=== PATIENT | male | born 1965 | race Caucasian/White ===

== ENCOUNTER 2019-12-16 18:28 | Inpatient (IN) | payer MEDICARE, OTHER ==
[~2019-12-16] VITALS: Ht 182.9 cm; Wt 103.4 kg
--- OUTSIDE RECORDS SUMMARY | 2019-12-16 18:32 | XMS ---
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 Tony has no Care Guidelines for this patient. Deniz VISIT COUNT (12 MO.) 1 DALJIT Scott TOTAL 1 NOTE: Visits indicate total known visits. ED/UCC VISIT TRACKING (12 MO.) 12/16/2019 18:29 DALJIT [facility] [place] TYPE: Emergency COMPLAINT: - FEVER/SOB/COUGH INPATIENT VISIT TRACKING (12 MO.) No inpatient visits to display in this time frame [email or web address]
[2019-12-16] MEDS ORDERED: OLANZAPINE20 MG PO (18:44)
[2019-12-16] MEDS ORDERED: OLANZAPINE10 MG PO (18:44)
[2019-12-16] MEDS ORDERED: DULOXETINE HCL30 MG PO (18:44)
[2019-12-16] MEDS ORDERED: LEVOFLOXACIN750 MG PO (18:44)
[2019-12-16] MEDS ORDERED: GABAPENTIN800 MG PO (18:45)
[2019-12-16] MEDS ORDERED: TIZANIDINE HCL4 M1 PO (18:45)
[2019-12-16] MEDS ORDERED: LEVETIRACETAM500 MG PO (18:45)
--- NOTE | 2019-12-16 22:00 | NUR ---
PATIENT ARRIVED VIA STRETCHER. TRANSFERED SELF TO BED. CONTINUES ON 3L NC, TOLERATING WELL WITH O2 SAT 95% AND RR 26. PATIENT CONTINUES TO HAVE FEVER. HR ELEVATED TO LOW 100'S. PATIENT INCONTINENT OF LARGE AMOUNT OF URINE. ORIENTED TO ALL, HOWEVER STATES "I'M OUT OF IN MAN" AND OCCATIONALLY RAMBLES UNDER HIS BREATH. SKIN GROSSLY INTACT. PATIENT REPORTS BEING HUNGRY, LUNCH BOX AND SODA PROVIDED.
--- NOTE | 2019-12-17 | NUR ---
PATIENT APPEARED TO BE SLEEPING SOUNDLY. TOLERATING 3L NC, O2 SAT 93% WITH RR 24. LUNG SOUNDS ARE COARSE ON LEFT SIDE, CLEAR ON RIGHT. NONPRODUCTIVE COUGH AT THIS TIME. PATIENT AWARE OF NEED FOR SPUTUM CULTURE. PATIENT WOKE EASILY TO VOICE. DENIES NEED TO VOID. IV FLUIDS AND MAG PER ORDER, SITE WNL. ALLOWED PATIENT TO REST. CALL LIGHT IN REACH.
--- NOTE | 2019-12-17 01:45 | NUR ---
PATIENT APPEARS DIAPHROETIC AND FEELS WARM TO THE TOUCH. REPORTS FEELING HOT WELL. ROOM TEMP REDUCED. PATIENT'S AXILLARY TEMP 98.4 F. PATIENT'S UPPER BODY WIPED WITH COOL WET WASH CLOTH AND DRIED. LINENS CHANGED. PATIENT DENIES NEED TO VOID. ATTENDS ARE DRY. TOLERATING 3L NC AT 95% O2 SAT. TITRATED TO 1L NC. PATIENT DENIES ANY NEEDS. CALL LIGHT IN REACH.
--- NOTE | 2019-12-17 03:11 | NUR ---
PATIENT APPEARS TO BE SLEEPING SOUNDLY. TOLERATING 1L NC WITH O2 SAT 92% AND RR 25. CALL LIGHT IN REACH.
--- NOTE | 2019-12-17 04:30 | NUR ---
PATIENT SLEEPING SOUNDLY. WAKES EASILY. ANSWERS QUESTIONS APPROPRIATELY. TOLERATING 1L NC. O2 SAT 93% WITH RR 22. BREATHING APPEARS EVEN AND NON LABORED. LUNG SOUNDS ARE COARSE THROUGHOUT. IV FLUIDS PER ORDER, SITE WNL. PATIENT DENIES NEED TO VOID, ATTENDS IS DRY. ORAL TEMP 98.7 F. PATIENT DENIED ANY NEEDS. CALL LIGHT IN REACH.
--- NOTE | 2019-12-17 06:39 | NUR ---
PATIENT DENIED NEED TO VOID. ENCOURAGED PATIENT TO GET UP TO BSC TO ATTEMPT TO VOID. PATIENT FOUND TO HAVE LARGE INCONTINENCE IN THE BED. PARTIAL BED BATH DONE. NEW ATTENDS PROVIDED. PATIENT RETURNED TO BED. REPORTS FEELING MORE STRENGTH THIS MORNING. IS ORIENTED X4. VS STABLE. TOLERATED TRANSFER WITHOUT O2. TITRATED TO ROOM AIR AT THIS TIME. O2 SAT 94% WITH RR 18.
--- NOTE | 2019-12-17 08:00 | NUR ---
ASSESSMENT DONE. TALKED WITH PATIENT ABOUT POC FOR DAY. INDICATES UNDERSTANDING. IVF PATIENT. PATIENT HAS LOOSE COUGH. DENIES INCREASED SHORTNESS OF BREATH. IS TALKATIVE. REMAINS ON ROOM AIR WITH O2 SAT MID 90'S.
--- NOTE | 2019-12-17 08:20 | NUR ---
TO XRAY DEPARTMENT VIA W/C FOR PA/LAT CHEST XRAY. TECH AND RN WITH PATIENT, SIMPLE MASK APPLIED TO PATIENT FOR TRANSFER.
--- NOTE | 2019-12-17 08:35 | NUR ---
RETURN TO ROOM 129. TOLERATE XRAY WELL. INC OF URINE, ATTENDS CHANGED. THEN TO CHAIR FOR BREAKFAST.
--- NOTE | 2019-12-17 09:00 | NUR ---
TOOK BREAKFAST WELL. ROUTINE MEDS GIVEN. IS COOPERATIVE. STATES HE FEELS MUCH BETTER TODAY.
[2019-12-17] MEDS ORDERED: MELATIN3 MG PO (10:16)
--- NOTE | 2019-12-17 10:26 | NUR ---
DR. NGUYEN HERE TO SEE PATIENT, ORDERS TO MED SURG RECIEVED.
--- NOTE | 2019-12-17 10:50 | NUR ---
TO BR TO EXPELL XX LARGE FORMED BROWN STOOL, BACK TO CHAIR.
--- NOTE | 2019-12-17 11:00 | NUR ---
REPORT TO MED-SURG. PATIENT REMAINS IN CHAIR.
--- NOTE | 2019-12-17 11:20 | NUR ---
TO MED-SURG VIA CHAIR.
--- NOTE | 2019-12-17 14:18 | NUR ---
PT IS STABLE ON HIS FEET, ABLE TO AMBULATE TO THE BATHROOM ALONE AT THIS TIME. REMINDED PT TO CALL IF HE FEELS LIGHTHEADED, DIZZY, SHORT OF BREATH, OR HAS ANY ISSUES AT ALL. PT AGREED.
--- NOTE | 2019-12-17 21:00 | NUR ---
Up in chair, watching tv. no c/o pain. was incontinent of urine earlier, attends inplace, alert and oriented, cooperative with assessment. On room air. IVF infusing, call light and fluids at bedside
--- NOTE | 2019-12-17 21:01 | EKG ---
[facility] [address] [facility] [address] [facility] [place], [place] [address] Signed Sinus tachycardia Possible Left atrial enlargement Incomplete right bundle branch block Septal infarct , age undetermined Abnormal ECG No previous ECGs available Confirmed by ARCENIO NGUYEN MD ([id number]) on 12/17/2019 9:01:23 PM Electronically Signed By: ARCENIO NGUYEN MD 12/17/192100 PATIENT NAME: BRITTANY MANUEL Electrocardiogram DATE OF : 65 PHYSICIAN: ARCENIO NGUYEN MD REPORT #: [id number] REPORT IS CONFIDENTIAL AND NOT TO BE RELEASED WITHOUT AUTHORIZATION
--- NOTE | 2019-12-17 21:05 | NUR ---
SCOURING PADS SUPERVISOR ROUNDING NOTE. PT SITTING UP CHAIR. PRIMARY RN IN ROOM ADMINISTERING MEDS. PT ASKS QUESTIONS ABOUT ROLES OF STAFF IN THE HOSPITAL. DENIES FURTHER NEEDS. WHITE BOARD UPDATED. CALL LIGHT IN REACH.
--- NOTE | 2019-12-18 00:02 | NUR ---
resting, eyes closed, no resp distress, on room air in bed, SL patent,
--- NOTE | 2019-12-18 02:00 | NUR ---
Pt resting, lying on his stomach, on room air, resp even, ulabored. call light at bedside, pt is SL now. tolerating diet well
--- NOTE | 2019-12-18 04:32 | NUR ---
aWAKE, INCONTINENT OF URINE, SKIN CARE AND CLEAN ATTENDS IN PLACE. ON ROOM AIR, AWARE OF NEED FOR SPUTUM. UP IN CHAIR AT THIS TIME. NO C/O PAIN OR SOB
--- NOTE | 2019-12-18 05:24 | NUR ---
PT HAS SLEPT MOST OF THIS SHIFT, SPUTUM SAMPLE OBTAINED AND SENT TO LAB. ON ROOM AIR, LUNGS DIM AT BASES BILAT. AND USES FWW, WEAK LE, INCONTINENT OF URINE, USES URINAL TOO. SKIN CARE AND FRESH ATTENDS IN PLACE. EDEMA AT ANKLES. PLESANT AND COOPERATIVE, SLX2 PATENT. USING CALL LIGHT APPROPRIATELY
--- NOTE | 2019-12-18 07:59 | NUR ---
REPORT RECEIVED. PT SITTING UP IN CHAIR. DENIES ANY PAIN OR NEEDS AT THIS TIME. SALINE LOCKED. CALL LIGHT IN REACH
--- NOTE | 2019-12-18 09:42 | NUR ---
PT ASSISTED OUT OF THE SHOWER TO RECLINER WARM BLANKET PROVIDED, BATHROOM CLEANED UP, FLOOR WIPED DRY. PT REQUEST ICE TEA, THIS IS PROVIDED. NO OTHER REQUESTS AT THIS TIME.
--- NOTE | 2019-12-18 11:14 | NUR ---
PATIENT TOOK A SHOWER THIS MORNING. NOW IS SITTING UP IN HIS CHAIR WATCHING TV. ALSO BROUGHT HIM SOME ICE TEA. LINENS CHANGED.
--- NOTE | 2019-12-18 12:23 | NUR ---
NIKI FROM LAB CALLED FOR CRITICAL LAB VALUE OF POSITIVE BACILLI. DR NGUYEN NOTIFIED.
--- NOTE | 2019-12-18 14:48 | NUR ---
AMBULATED 2 LAPS IN HALLS. TOLERATED WELL.
--- NOTE | 2019-12-18 18:39 | NUR ---
AMBULATED 1 LAP WITH PT. TOELRATED WELL.
--- NOTE | 2019-12-18 20:56 | NUR ---
Up in chair, no c/o pain, no c/o sob. on room air. lungs with faint exp wheezing bilat. edema to ankles 2+, was incontinent of urine in attends and over urinal. Taking QS fluids, no emesis. Medicated per c/o insomnia with 3mg of Melatonin and muscle relaxing meds. Coop with assessment. IVF infusing w/o problems
--- NOTE | 2019-12-18 21:45 | NUR ---
ISSUER ROUNDING NOTE. PT CALLS BECAUSE HE CANNOT REACH URINAL WHILE IVF INFUSING. URINAL MOVED WITHIN PT'S REACH. PT HAS NUMEROUS QUESTIONS ABOUT CURRENT ILLNESS, AND DISCHARGE. QUESTIONS ANSWERED AND PT DENIES FURTHER QUESTIONS. CALL LIGHT IN REACH. WHITE BOARD UDPATED.
--- NOTE | 2019-12-19 00:10 | NUR ---
RESTING, EYES CLOSED, NO C/O PAIN OR RESP DISTRESS, LAYING ON STOMACH, CALL LIGHT AND FLUIDS AT BEDSIDE
--- NOTE | 2019-12-19 01:55 | NUR ---
Rresting, eyes closed, no distress, resp even, unlabored. call light and fluids at bedside
--- NOTE | 2019-12-19 03:26 | NUR ---
UP TO CHAIR, USED URINAL, VOIDING LARGE AMOUNTS OF DARK YELLOW URINE. NO C/O PAIN. NO SOB. FAINT CRACKLES AT BASES AUSCULTATED. TOLERATING DIET WELL.
--- NOTE | 2019-12-19 04:56 | NUR ---
c/o h/a and back 02/28 pain, medicated with tylenol 500mg po, up in chair
--- NOTE | 2019-12-19 05:01 | NUR ---
pt c/o back pain, medicated with Zanaflex , pt up in chair watching tv
--- NOTE | 2019-12-19 05:50 | NUR ---
Pt was medicated with Zanaflex x2 per c/o back muscle spasms with good relief and with Melatonin per insomnia, effective. Pt has been drinking large amounts of fluids, and voiding large amounts of yellow urine. Was incontient of urine x2. Up to chair several times, w minimum of assist. currently in chair watching tv. no emesis, on room air, lungs with faint crackles and dim at bases. Pt states he is going home, waiting on BC and sputum results
--- NOTE | 2019-12-19 07:40 | NUR ---
RECEIVED REPROT FROM [facility]. PT IS UP IN THE RECLINER, ALERT, PLEASANT. ON RA, DENIED PAIN, NO NEEDS AT THE MOMENT. WILL BE BACK TO ASSESS.
--- NOTE | 2019-12-19 08:24 | NUR ---
PT ALERT, ORIENTED, COPPERATIVE, PLEASANT. TOOK HIS SCHEDULED MEDS WHOLE WITH WATER. VSS WNL. FLUSHED IV SITE WITH 10 ML OF NS WITHOUT ANY DIFFICULTIES. EATS BREAKFAST. WILL BE BACK TO ASSESS.
--- NOTE | 2019-12-19 11:24 | NUR ---
PT UP IN HIS RECLINER, WATCHING TV. aLERT, COOPERATIVE, POLITE. REPORTEED PAIN 02/28. SEE MAR FOR MEDICATION ADMINISTRATION. NO OTHER HEEDS AT THE MOMENT. WILL BE BACK TO REASSESS FOR PAIN.
--- NOTE | 2019-12-19 12:39 | NUR ---
PT WAS SITTING IN CHAIR, EATING LUNCH AND WATCHING TV. PT WELCOMED ME, AND SEEMED TO BE ENJOYING HIS LUNCH. PT PLANS ON DC TODAY TO DESIRE FOR HEALING AND MENTIONED HE IS VERY COMFORTABLE THERE. PT THANKFUL FOR CARE, EXTENDED A BLESSING AND LEFT A G.POST
--- NOTE | 2019-12-19 13:20 | NUR ---
PT GIVEN MORE ICE TEA AND ICE. WALKED IN MOON X2 LOOPS. TOLERATED WELL WITH FWW.
[2019-12-19] MEDS ORDERED: DOXYCYCLINE HY100 MG PO (14:02)
[2019-12-19] MEDS ORDERED: CEFPODOXIME PR200 MG PO (14:03)
--- NOTE | 2019-12-19 14:03 | NUR ---
IN ROOM WITH PT AND DR NGUYEN. PT READY TO GO HOME AND FEELS STRONGER THAN UPON ARRIVAL. STATES COUGH IS ALL BUT GONE.
--- NOTE | 2019-12-19 14:25 | NUR ---
pt dressed up in his recliner, ready to be discharged. in a good mood and spirit, cooperative.
== END 2019-12-19 15:53 | disposition home or self-care (01) | DRG 871 ==
LOC: ED 18:28 → CCU 21:08 → MS 21:08
PROVIDERS: ADMIT Internal Medicine
DX: A40.9 Streptococcal sepsis, unspecified (principal); J15.4 Pneumonia due to other streptococci; I47.1 Supraventricular tachycardia; E83.42 Hypomagnesemia; F20.9 Schizophrenia, unspecified; F41.8 Other specified anxiety disorders; F17.210 Nicotine dependence, cigarettes, uncomplicated; D72.829 Elevated white blood cell count, unspecified; T38.0X5A Adverse effect of glucocorticoids and synthetic analogues, initial encounter; Y92.239 Unspecified place in hospital as the place of occurrence of the external cause; Z88.1 Allergy status to other antibiotic agents; Z88.8 Allergy status to other drugs, medicaments and biological substances
CPT/HCPCS: 36415; 71045; 71046; 80053; 83605; 83735; 83880; 84484; 85025; 87502; 93005; 93010; 94640; 94667; 96374; 96375; 99285-25; 99406; J0696; J1100; J1956; J3475; J7030; J7121

== ENCOUNTER 2020-09-27 15:05 | Inpatient (IN) | payer MEDICARE, OTHER ==
[~2020-09-27] VITALS: Ht 182.9 cm; Wt 115.0 kg
[~2020-09-27 15:05] MED LIST: CEFPODOXIME PR200 MG PO; CYMBALTA60 MG PO; DOXYCYCLINE HY100 MG PO; GABAPENTIN800 MG PO; KEPPRA750 MG PO; LEVOFLOXACIN750 MG PO; MELATIN3 MG PO; OLANZAPINE10 MG PO; OLANZAPINE20 MG PO; TIZANIDINE HCL2 MG PO
--- OUTSIDE RECORDS SUMMARY | 2020-09-27 15:08 | XMS ---
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 EYahir VISIT COUNT (12 MO.) 1 Kelvin Scott TOTAL 3 NOTE: Visits indicate total known visits. ED/UCC VISIT TRACKING (12 MO.) 09/27/2020 15:05 DALJIT [facility] [place] TYPE: Emergency COMPLAINT: - POSSIBLE OD 12/16/2019 18:[address] [facility] [place] TYPE: Emergency COMPLAINT: - FEVER/SOB/COUGH 10/30/2019 16:09 Kelvin [facility] [place] TYPE: Emergency DIAGNOSES: - Weakness - Alcohol dependence, uncomplicated - Schizophrenia, unspecified - Mental Health Evaluation - Unspecified urinary incontinence - Acute cystitis with hematuria INPATIENT VISIT TRACKING (12 MO.) 12/16/2019 21:08 DALJIT [facility] [place] TYPE: Medical Surgical COMPLAINT: - SEPSIS, PNEUMONIA DIAGNOSES: - Streptococcal sepsis, unspecified - Supraventricular tachycardia - Elevated white blood cell count, unspecified - Allergy status to other antibiotic agents - Pneumonia due to other streptococci - Unspecified place in hospital as the place of occurrence of the external cause - Adverse effect of glucocorticoids and synthetic analogues, initial encounter - Other specified anxiety disorders - Elevated white blood cell count, unspecified - Allergy status to other drugs, medicaments and biological substances - Supraventricular tachycardia - Schizophrenia, unspecified - Schizophrenia, unspecified - Allergy status to other antibiotic agents - Nicotine dependence, cigarettes, uncomplicated - Pneumonia due to other streptococci - Nicotine dependence, cigarettes, uncomplicated - Streptococcal sepsis, unspecified - Sepsis, unspecified organism - Hypomagnesemia - Allergy status to other drugs, medicaments and biological substances - Unspecified place in hospital as the place of occurrence of the external cause - Other specified anxiety disorders - Adverse effect of glucocorticoids and synthetic analogues, initial encounter - Hypomagnesemia [email or web address]
[2020-09-27] MEDS ORDERED: 8 HOUR650 MG PO (16:27)
[2020-09-27] MEDS ORDERED: MIRALAX17 GM PO (16:28)
[2020-09-27] MEDS ORDERED: OXYBUTYNIN CHLOR5 MG PO (16:28)
[2020-09-27] MEDS ORDERED: LOPERAMIDE2 M1 PO (16:28)
[2020-09-27] MEDS ORDERED: VITAMIN D21250 MCG PO (16:29)
--- NOTE | 2020-09-27 17:38 | EKG ---
[facility] [address] [facility] [place] [address] Signed Sinus tachycardia Minimal voltage criteria for LVH, may be normal variant Nonspecific ST abnormality Prolonged QT Abnormal ECG When compared with ECG of 16-DEC-2019 18:42, Incomplete right bundle branch block is no longer present ST now depressed in Anterior leads Confirmed by ARCENIO NGUYEN MD ([id number]) on 09/27/2020 5:38:20 PM Electronically Signed By: ARCENIO NGUYEN MD 09/27/20 1738 PATIENT NAME: BRITTANY MANUEL Electrocardiogram DATE OF : 65 PHYSICIAN: ARCENIO NGUYEN MD REPORT #: [id number] REPORT IS CONFIDENTIAL AND NOT TO BE RELEASED WITHOUT AUTHORIZATION
--- NOTE | 2020-09-28 22:23 | EKG ---
[facility] [address] [facility] [place] [address] Signed Normal sinus rhythm Nonspecific intraventricular block Abnormal ECG When compared with ECG of 27-SEP-2020 15:14, ST no longer depressed in Anterior leads Confirmed by ARCENIO NGUYEN MD ([id number]) on 09/28/2020 10:23:13 PM Electronically Signed By: ARCENIO NGUYEN MD 09/28/20 2223 PATIENT NAME: BRITTANY MANUEL Electrocardiogram DATE OF : 65 PHYSICIAN: ARCENIO NGUYEN MD REPORT #: [id number] REPORT IS CONFIDENTIAL AND NOT TO BE RELEASED WITHOUT AUTHORIZATION
[2020-09-30] MEDS ORDERED: DOXYCYCLINE HY100 MG PO (12:08)
[2020-09-30] MEDS ORDERED: CEFPODOXIME PR200 MG PO (12:09)
[2020-09-30] MEDS ORDERED: PROBIOTIC1 EAC5 PO (12:10)
== END 2020-09-30 14:00 | disposition home or self-care (01) | DRG 871 ==
LOC: ED 15:05 → CCU 20:19 → MS 09-29 16:17
PROVIDERS: ADMIT Internal Medicine; ATTEND Internal Medicine
DX: A40.9 Streptococcal sepsis, unspecified (principal); J15.4 Pneumonia due to other streptococci; G92 Toxic encephalopathy; L03.115 Cellulitis of right lower limb; Z20.822 Contact with and (suspected) exposure to COVID-19; R65.20 Severe sepsis without septic shock; T65.894A Toxic effect of other specified substances, undetermined, initial encounter; K75.2 Nonspecific reactive hepatitis; A41.89 Other specified sepsis; F20.9 Schizophrenia, unspecified; G40.909 Epilepsy, unspecified, not intractable, without status epilepticus; E87.6 Hypokalemia; Z79.899 Other long term (current) drug therapy; Z88.1 Allergy status to other antibiotic agents
CPT/HCPCS: 36415; 71045; 80053; 80176; 81001; 83605; 83735; 84439; 84443; 85025; 86060; 87077; 87088; 87147; 87186; 93005; 93010; 96374; 99285-25; C9803; J0696; J2543; J3475; J3480; J7030; J7121; U0003

== ENCOUNTER 2021-01-30 06:38 | Day surgery (SDC) | payer MEDICARE, OTHER ==
[~2021-01-30 06:38] MED LIST changes: +8 HOUR650 MG PO; +LOPERAMIDE2 M1 PO; +MIRALAX17 GM PO; +OXYBUTYNIN CHLOR5 MG PO; +PROBIOTIC1 EAC5 PO; +SPIRONOLACTONE25 MG PO; +VITAMIN D21250 MCG PO
--- NOTE | 2021-01-30 07:07 | NUR ---
RATES NECK PAIN 4/10
--- NOTE | 2021-01-30 07:09 | NUR ---
USES WC OR WALKER DENIES ANY RECENT FALLS
--- NOTE | 2021-01-30 08:38 | NUR ---
01/30/21 0838 BridgetAbbie M 0813- PT TO PACU IN LL POSITION. RESPONDS TO VERBAL STIMULI. BREATHING EASY AND UNLABORED. SPO2 >95% ON 2 L O2 VIA NC. 0816- PT VOIDING IN THE BED. RESPONDS TO VERBAL AND TACTILE STIMULI. DROWSY. BRETHING EASY AND UNLABORED. O2 TITRATED DOWN TO ROOM AIR. SPO2 >95%. 0925- PT MOVES SELF IN BED. RONAD CARE PROVIDED. CLEAN LINENS PROVIDED. PT REQUIRES ASSISTANCE WITH CARE AT BASELINE PER PATIENT REPORT. DENIES PAIN NAUSEA AND DIZZINESS. SPO2 >95% ON ROOM AIR. 0834- PT SITTING UP IN BED EATING CRACKERS AND JUICE. TOLERATING PO WELL. BREATHING EASY AND UNLABORED. SPO2 >95% ON ROOM AIR. DENIES PAIN NAUSEA OR DIZZINESS. PT REQUESTING TO GO HOME NOW.
--- NOTE | 2021-01-31 12:38 | OR ---
[facility] [address] [place], [place] [address] Signed DATE OF OPERATION: 01/30/2021 SURGEON: Steffany Delgado MD PREOPERATIVE DIAGNOSES: 1. Personal history of colonic polyps in 2009. 2. Personal history of colonic polyps in 2020. 3. Extremely poor bowel prep in 2020. 4. Internal hemorrhoids. POSTOPERATIVE DIAGNOSES: 1. A 5 mm polyp at the base of cecum. 2. A 6 mm polyp at 95 cm. 3. A 4 mm polyp at the rectosigmoid junction. 4. A 4 mm polyps x3 at 8 cm/distal rectum. PROCEDURE: Colonoscopy with hot biopsy. ESTIMATED BLOOD LOSS: None. INDICATIONS: Yasir is a 55-year-old gentleman with significant schizophrenia requiring a correction here in [place], [place]. Apparently, he is not particularly compliant with his bowel prep. We did his upper and lower endoscopies a few weeks ago. His prep was extremely poor. He told me if he can have ice tea for the bowel prep, he would do fine. We decided to do ice tea with his bowel prep for two days. He also has cirrhosis of the liver with re-cannulization of the umbilical vein, although we did not see any esophageal varices. His biopsies from the stomach were fine and without any congestive changes. H pylori had been negative. We know he had polyps in his colon back in 2009. We also found a hyperplastic and an adenomatous polyp on his limited colonoscopy this year. He is known to have internal hemorrhoids. In the office, we have reviewed this in detail. Yasir assures me with the ice tea he will do well with his double bowel prep over two days. In the meantime, we did send him for some repeat blood work. Sodium is good at 143, BUN 11, and creatinine 0.69. Liver function tests are fine with an AST of 22, ALT 18, alkaline phosphatase 95, total bilirubin at 0.8. Albumin is good at 3.7. INR good at 1.1. Hemoglobin was good at 14.5 with a mean cell volume of 88. In the office, I reviewed with him the nature of a colonoscopy. He understands the nature of that test along with the risks including, but not limited to gas bloating, crampy Electronically Signed By: STEFFANY DELGADO MD 01/31/21 0613 Electronically Signed By: STEFFANY DELGADO MD 01/31/21 1633 PATIENT NAME: YASIR MANUEL OPERATIVE REPORT DATE OF : 65 REPORT #: [id number] PHYSICIAN: STEFFANY DELGADO MD PCP: ARCENIO NGUYEN MD REPORT IS CONFIDENTIAL AND NOT TO BE RELEASED WITHOUT AUTHORIZATION [facility] [address] [place], [place] [address] Signed abdominal pain, bleeding, perforation requiring surgery, and missed diagnosis. Also because of his advanced medical issues as well as his very large body habitus, we asked an anesthesia provider to help us with increased monitoring sedation with propofol. He had expressed understanding and wished to proceed. DESCRIPTION OF PROCEDURE: Yasir was taken into our endoscopy suite and placed in the left lateral decubitus position. He was given IV sedation with propofol per our nurse medical planner. He has a very large protuberant, mobile, soft abdomen. A digital rectal exam was performed and this was unremarkable, really not much in the way of any external hemorrhoids. The adult colonoscope was introduced and advanced under direct visualization of camera. Even then, he had several areas of liquid particulate stool matter, most of that was suctioned out. It took quite a bit of time to get up to the sigmoid and left colon and eventually into the cecum itself. We could easily identify the appendiceal orifice and the ileocecal valve. The scope was then slowly withdrawn. We took pictures throughout for photodocumentation. The above-mentioned polyps were removed with the help of hot biopsy forceps. There was no diverticulosis. In the rectum, we retroflexed the scope. We could not quite get a good view above the anal canal on this occasion as we did earlier in the year. After this, the gas was suctioned out. The colonoscope removed. Yasir tolerated the procedure quite well. RECOMMENDATIONS: Yasir will follow up in my office in 7 to 14 days to review his results. He might consider a short-interval colonoscopy in 3 years with a significant bowel prep, and again because of his cirrhosis, he really should consider seeing a hospice volunteer coordinator. Steffany Delgado MD ALB/MODL /[id number] cc: Steffany Delgado MD Electronically Signed By: STEFFANY DELGADO MD 01/31/21 0613 Electronically Signed By: STEFFANY DELGADO MD 01/31/21 1633 PATIENT NAME: YASIR MANUEL OPERATIVE REPORT DATE OF : 65 REPORT #: [id number] PHYSICIAN: STEFFANY DELGADO MD PCP: ARCENIO NGUYEN MD REPORT IS CONFIDENTIAL AND NOT TO BE RELEASED WITHOUT AUTHORIZATION [facility] [address] [place] [address] Signed Copies: STEFFANY DELGADO MD ~ Electronically Signed By: STEFFANY DELGADO MD 01/31/21 0613 Electronically Signed By: STEFFANY DELGADO MD 01/31/21 1633 PATIENT NAME: YASIR MANUEL OPERATIVE REPORT DATE OF : 65 REPORT #: [id number] PHYSICIAN: STEFFANY DELGADO MD PCP: ARCENIO NGUYEN MD REPORT IS CONFIDENTIAL AND NOT TO BE RELEASED WITHOUT AUTHORIZATION
--- NOTE | 2021-02-01 15:28 | PATH ---
[facility] [address] [place], [place] [address] Signed SPECIMEN(S): B COLON POLYP 90 CM SPECIMEN(S): C COLON POLYP 15 CM SPECIMEN(S): A CECAL POLYP SPECIMEN(S): D RECTAL POLYP 8 CM SPECIMEN SOURCE: A. CECAL POLYP B. COLON POLYP 90 CM C. COLON POLYP 15 CM D. RECTAL POLYP 8 CM CLINICAL HISTORY: History of rectal polyps; alcoholic cirrhosis. Postop diagnosis: Colon and rectal polyps MICROSCOPIC DESCRIPTION: Histologic sections of all submitted blocks are examined by light microscopy. These findings, together with the gross examination, support the pathologic diagnosis. FINAL PATHOLOGIC DIAGNOSIS: A. Colon, cecum, polyp, polypectomy: - Tubular adenoma. - Negative for high-grade dysplasia or malignancy. B. Colon, polyp at 90 cm, polypectomy: - Tubular adenoma. - Negative for high-grade dysplasia or malignancy. C. Colon, polyp at 15 cm, polypectomy: - Tubular adenoma. - Negative for high-grade dysplasia or malignancy. D. Rectum, polyp at 8 cm, polypectomy: - Fragments of hyperplastic polyp. - Negative for dysplasia or malignancy. NAL:cml:C2NR GROSS DESCRIPTION: Four specimens are received in four containers, labeled "Yasir Alexandra." A. The specimen, labeled "Yasir Alexandra, 1," and designated on the requisition "cecum polypectomy," is received in formalin and consists of one christianson soft tissue fragment(s) that measure 0.3 cm in greatest dimension. The specimen is entirely submitted in cassette (A1). B. The specimen, labeled "Yasir Alexandra, #2," and designated on the PATIENT NAME: YASIR ALEXANDRA PATHOLOGY DATE OF : 65 REPORT #: [id number] PHYSICIAN: NATHALIE BARNETT PCP: ARCENIO NGUYEN MD REPORT IS CONFIDENTIAL AND NOT TO BE RELEASED WITHOUT AUTHORIZATION [facility] [address] [place], [place] [address] Signed requisition "colon polypectomy at 90 cm," is received in formalin and consists of two christianson soft tissue fragments that measure 0.2 and 0.3 cm in greatest dimension. The specimen is entirely submitted in cassette (B1). C. The specimen, labeled "Yasir Alexandra, #3," and designated on the requisition "colon polypectomy at 15 cm," is received in formalin and consists of one christianson soft tissue fragment that measures 0.4 cm in greatest dimension. The specimen is entirely submitted in cassette (C1). D. The specimen, labeled "Yasir Alexandra, #4," and designated on the requisition "rectum polypectomy and 8 cm," is received in formalin and consists of two christianson soft tissue fragments that measure 0.4 and 0.4 cm in greatest dimension. The specimen is entirely submitted in cassette (D1). FB (under the direct supervision of a pathologist) The Gross Description was prepared using a voice recognition system. The report was reviewed for accuracy; however, sound-alike word errors, addition and/or deletions may occur. If there is any question about this report, please contact Client Services. PERFORMING LABORATORY: The technical component was performed by [employer], [address] [place] [id number] (Director Nursing Service: Meli Melgar MD; CLIA# [id number]). Professional interpretation was performed by [employer], [facility], [address] [address] (CLIA# [id number]). Diagnostician: Ana Ayoub MD Pathologist Electronically Signed 02/01/2021 Copies: ~ PATIENT NAME: YASIR ALEXANDRA PATHOLOGY DATE OF : 65 REPORT #: [id number] PHYSICIAN: NATHALIE BARNETT PCP: ARCENIO NGUYEN MD REPORT IS CONFIDENTIAL AND NOT TO BE RELEASED WITHOUT AUTHORIZATION
== END 2021-01-30 08:50 | disposition home or self-care (01) ==
LOC: DS 06:38 → OPS 06:38 → DS 06:45 → OPS 08:50
PROVIDERS: ATTEND Colon & Rectal Surgery
PROC: 0DBN8ZX Excision of Sigmoid Colon, Via Natural or Artificial Opening Endoscopic, Diagnostic (ICD-10-PCS; 2021-01-30)
PROC: 0DBG8ZX Excision of Left Large Intestine, Via Natural or Artificial Opening Endoscopic, Diagnostic (ICD-10-PCS; 2021-01-30)
PROC: 0DBH8ZX Excision of Cecum, Via Natural or Artificial Opening Endoscopic, Diagnostic (ICD-10-PCS; principal; 2021-01-30 06:45)
DX: K62.1 Rectal polyp (principal); D12.0 Benign neoplasm of cecum; K63.5 Polyp of colon; K70.30 Alcoholic cirrhosis of liver without ascites; F17.210 Nicotine dependence, cigarettes, uncomplicated; K76.6 Portal hypertension; K64.0 First degree hemorrhoids; Z86.19 Personal history of other infectious and parasitic diseases; Z88.1 Allergy status to other antibiotic agents; Z86.010 Personal history of colon polyps
CPT/HCPCS: 88305; J2704; J7121

== ENCOUNTER 2021-07-05 19:22 | Emergency (ER) | payer OTHER, MEDICARE ==
[~2021-07-05] VITALS: Ht 182.9 cm; Wt 121.2 kg
--- OUTSIDE RECORDS SUMMARY | 2021-07-05 19:24 | XMS ---
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 Care History Medical/Surgical 10/01/2020 [facility] -PATIENT HAS AN APT WITH DR NGUYEN TO ESTABLISH CARE ON 10/09/20. - Patient is currently established with [facility]. If patient is seen in the ED during business hours. Please contact CHWs at [facility]. Care Recommendation: If this patient has had 5 or more Emergency Department visits in the last 12 months.\T\nbsp; Patient will require education on the scope and purpose of the ED as an acute care provider not a Primary Care Provider and should not be utilized for chronic conditions.\T\nbsp; These are guidelines and the provider should exercise clinical judgment when providing care. E.D. VISIT COUNT (12 MO.) [address] [facility] TOTAL 2 NOTE: Visits indicate total known visits. ED/UCC VISIT TRACKING (12 MO.) 07/05/2021 19:22 [facility] [place] TYPE: Emergency COMPLAINT: - INTOXICATION 09/27/2020 15:05 [facility] [place] TYPE: Emergency COMPLAINT: - POSSIBLE OD INPATIENT VISIT TRACKING (12 MO.) 09/27/2020 20:19 [facility] [place] TYPE: Medical Surgical COMPLAINT: - SEPSIS DIAGNOSES: - Nonspecific reactive hepatitis - Nonspecific reactive hepatitis - Cellulitis of right lower limb - Hypokalemia - Other superintendent terminal (current) drug therapy - Schizophrenia, unspecified - Toxic effect of other specified substances, undetermined, initial encounter - Toxic encephalopathy - Allergy status to other antibiotic agents - Epilepsy, unspecified, not intractable, without status epilepticus - Other superintendent terminal (current) drug therapy - Epilepsy, unspecified, not intractable, without status epilepticus - Pneumonia due to other streptococci - Toxic effect of other specified substances, undetermined, initial encounter - Other specified sepsis - Streptococcal sepsis, unspecified - Toxic encephalopathy - Pneumonia due to other streptococci - Other specified sepsis - Hypokalemia - Allergy status to other antibiotic agents - Severe sepsis without septic shock - Schizophrenia, unspecified - Cellulitis of right lower limb - Severe sepsis without septic shock [id number]
== END 2021-07-06 06:30 | disposition home or self-care (01) ==
LOC: ED 19:22
DX: F10.129 Alcohol abuse with intoxication, unspecified (principal); S09.90XA Unspecified injury of head, initial encounter; W18.30XA Fall on same level, unspecified, initial encounter; Y92.59 Other trade areas as the place of occurrence of the external cause; K21.9 Gastro-esophageal reflux disease without esophagitis; F17.200 Nicotine dependence, unspecified, uncomplicated; Z88.2 Allergy status to sulfonamides; Z88.1 Allergy status to other antibiotic agents; Z79.899 Other long term (current) drug therapy; Y90.8 Blood alcohol level of 240 mg/100 ml or more
CPT/HCPCS: 70450; 99284-25; G0480

== ENCOUNTER 2021-07-08 19:47 | Emergency (ER) | payer MEDICARE, OTHER ==
[~2021-07-08] VITALS: Ht 182.9 cm; Wt 121.2 kg
--- OUTSIDE RECORDS SUMMARY | 2021-07-08 19:50 | XMS ---
PreManage Notification: BRITTANY MANUEL Security Business Intern Events No recent Security Events currently on file CRITERIA MET - [facility] - 2 Visits in 30 Days - PDMP CARE PROVIDERS [place] [facility] Internal Medicine Current PHONE: Unknown ARCENIO NGUYEN Internal Medicine 10/01/2020-Current PHONE: [phone] Tony has no Care Guidelines for this patient. Care History Medical/Surgical 10/01/2020 [facility] -PATIENT HAS AN APT WITH DR NGUYEN TO ESTABLISH CARE ON 10/09/20. - Patient is currently established with [facility]. If patient is seen in the ED during business hours. Please contact CHWs at [facility]. Care Recommendation: If this patient has had [...] providing care. E.D. VISIT COUNT (12 MO.) 3 [facility] TOTAL 3 NOTE: Visits indicate total known visits. 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
== END 2021-07-08 22:00 | disposition home or self-care (01) ==
LOC: ED 19:47
DX: F10.20 Alcohol dependence, uncomplicated (principal); Y90.3 Blood alcohol level of 60-79 mg/100 ml; K21.9 Gastro-esophageal reflux disease without esophagitis; F17.200 Nicotine dependence, unspecified, uncomplicated; Z88.2 Allergy status to sulfonamides; Z88.1 Allergy status to other antibiotic agents; Z79.899 Other long term (current) drug therapy
CPT/HCPCS: 80053; 81001; 82140; 83690; 85025; 99284; G0480; J7030

== ENCOUNTER 2021-07-18 11:29 | Emergency (ER) | payer MEDICARE, OTHER ==
[~2021-07-18] VITALS: Ht 182.9 cm; Wt 121.2 kg
--- OUTSIDE RECORDS SUMMARY | 2021-07-18 11:32 | XMS ---
PreManage Notification: BRITTANY MANUEL Security Lab Analyst Events No recent Security Events currently on file CRITERIA MET - [facility] - [facility] - 2 Visits in 30 Days CARE PROVIDERS [place] [facility] Internal Medicine Current PHONE: Unknown [facility] 10/01/2020-Current PHONE: [phone] Tony has no Care Guidelines for this patient. Care History Medical/Surgical 07/11/2021 [facility] - IF PATIENT IS SEEN IN ED - PLEASE CONTACT CASE MANAGEMENT - IF CASE MANAGEMENT IS NOT AVAILABLE PLEASE ASK FOR UPDATED CONTACT NUMBER. PATIENT NO LONGER RESIDES AT THE NUMBERS/CONTACTS LISTED. 10/01/2020 [facility] -PATIENT HAS AN APT WITH DR NGUYEN TO ESTABLISH CARE ON 10/09/20. - Patient is currently established with [facility]. If patient is seen in the ED during business hours. Please contact CHWs at [facility]. Care Recommendation: If this patient has had [...] providing care. E.D. VISIT COUNT (12 MO.) 4 [facility] TOTAL 4 NOTE: Visits indicate total known visits. ED/UCC VISIT TRACKING (12 MO.) 07/18/2021 11:[address] [place] TYPE: Emergency COMPLAINT: - NEK PAIN 07/08/2021 19:[address] [facility] [place] TYPE: Emergency COMPLAINT: - ABD PAIN DIAGNOSES: - Alcohol dependence, uncomplicated - Gastro-esophageal reflux disease without esophagitis - Allergy status to sulfonamides - Alcoholic cirrhosis of liver without ascites - Allergy status to other antibiotic agents - Blood alcohol level of 60-79 mg/100 ml - Nicotine dependence, unspecified, uncomplicated - Other penitentiary (current) drug therapy 07/05/2021 19:[address] [place] TYPE: Emergency COMPLAINT: - INTOXICATION DIAGNOSES: - Other penitentiary (current) drug therapy - Blood alcohol level of 240 mg/100 ml or more - Allergy status to sulfonamides - Gastro-esophageal reflux disease without esophagitis - Unspecified injury of head, initial encounter - Nicotine dependence, unspecified, uncomplicated - Other trade areas as the place of occurrence of the external cause - Allergy status to other antibiotic agents - Fall on same level, unspecified, initial encounter - Alcohol abuse with intoxication, unspecified 09/27/2020 15:05 [facility] [place] TYPE: Emergency COMPLAINT: - POSSIBLE OD INPATIENT VISIT TRACKING (12 MO.) 09/27/2020 20:19 [facility] [place] TYPE: Medical Surgical COMPLAINT: - SEPSIS DIAGNOSES: - Nonspecific reactive hepatitis - Nonspecific reactive hepatitis - Cellulitis of right lower limb - Hypokalemia - 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
== END 2021-07-18 19:54 | disposition short-term general hospital (02) ==
LOC: ED 11:29
DX: S13.4XXA Sprain of ligaments of cervical spine, initial encounter (principal); M54.12 Radiculopathy, cervical region; W17.89XA Other fall from one level to another, initial encounter; K21.9 Gastro-esophageal reflux disease without esophagitis; F17.200 Nicotine dependence, unspecified, uncomplicated; Z88.2 Allergy status to sulfonamides; Z88.1 Allergy status to other antibiotic agents; Z79.899 Other long term (current) drug therapy; Z20.822 Contact with and (suspected) exposure to COVID-19
CPT/HCPCS: 70210; 70450; 72125; 80053; 85025; 99285-25; C9803; G0480; U0003

== ENCOUNTER 2021-11-20 17:41 | Emergency (ER) | payer MEDICARE, OTHER ==
[~2021-11-20] VITALS: Ht 182.9 cm; Wt 113.5 kg
--- OUTSIDE RECORDS SUMMARY | 2021-11-20 17:44 | XMS ---
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 Care History Medical/Surgical 07/23/2021 [facility] No follow ups scheduled with PCP at this time. 07/11/2021 [facility] - IF PATIENT IS SEEN IN ED - PLEASE CONTACT CASE MANAGEMENT - IF CASE MANAGEMENT IS NOT AVAILABLE PLEASE ASK FOR UPDATED CONTACT NUMBER. PATIENT NO LONGER RESIDES AT THE NUMBERS/CONTACTS LISTED. 10/01/2020 [facility] -PATIENT HAS AN APT WITH DR NGUYEN TO ESTABLISH CARE ON 10/09/20. - Patient is currently established with [facility]. If patient is seen in the ED during business hours. Please contact CHWs at [facility]. Care Recommendation: If this patient has [...] providing care. E.D. VISIT COUNT (12 MO.) 1 [facility] Jimenez 2 [facility] 3 [facility] 1 [facility] 1 [place] 4 [facility]. TOTAL 12 NOTE: Visits indicate total known visits. ED/UCC VISIT TRACKING (12 MO.) 11/20/2021 17:42 [facility] [place] TYPE: Emergency COMPLAINT: - WOUND CHECK 10/25/2021 22:22 [facility] [place] TYPE: Emergency DIAGNOSES: - Hypokalemia - SOB; [place] - Hypoxemia - Other specified abnormal findings of blood chemistry - Other acute pancreatitis without necrosis or infection 10/25/2021 10:02 [facility] [place] TYPE: Psychiatric Emergency DIAGNOSES: - Adjustment disorder with depressed mood - [facility] 10/18/2021 10:02 [facility] [place] TYPE: Emergency COMPLAINT: - COVID-19 DIAGNOSES: 1. COVID-19 2. Encounter for other administrative examinations 3. Nicotine dependence, cigarettes, uncomplicated 08/31/2021 17:49 [facility] [place] TYPE: Emergency COMPLAINT: - SEPSIS, ACUTE RESPIRATORY FAILURE WITH HYPOXIA DIAGNOSES: 0. Acute respiratory failure with hypoxia 0. Sepsis, unspecified organism 08/08/2021 18:43 [facility] TYPE: Emergency DIAGNOSES: - HOMELESSNESS UNSPECIFIED - COUGH, UNSPECIFIED 08/01/2021 01:08 [facility] TYPE: Emergency DIAGNOSES: 90674. Acute upper respiratory infection, unspecified 07/31/2021 17:45 [facility] TYPE: Emergency DIAGNOSES: 63903. SOB; Cough; [place]; Chills 07/18/2021 21:58 [facility] TYPE: Emergency DIAGNOSES: 44899. Fall out of WC onto face . Spinal stenosis, cervical region . Fall from non-moving wheelchair, initial encounter . Alcohol abuse, uncomplicated . Paresthesia of skin 07/18/2021 11:30 [facility] [place] TYPE: Emergency COMPLAINT: - NEK PAIN DIAGNOSES: - Allergy status to other antibiotic agents - Other fall from one level to another, initial encounter - Nicotine dependence, unspecified, uncomplicated - Allergy status to sulfonamides - Sprain of ligaments of cervical spine, initial encounter - Gastro-esophageal reflux disease without esophagitis - Other fpc (current) drug therapy - Radiculopathy, cervical region - Cervicalgia 07/08/2021 19:48 [facility] [place] TYPE: Emergency COMPLAINT: - ABD PAIN DIAGNOSES: - Alcohol dependence, uncomplicated - Gastro-esophageal reflux disease without esophagitis - Allergy status to sulfonamides - Alcoholic cirrhosis of liver without ascites - Allergy status to other antibiotic agents - Blood alcohol level of 60-79 mg/100 ml - Nicotine dependence, unspecified, uncomplicated - 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 07/05/2021 19:22 [facility] [place] TYPE: Emergency COMPLAINT: - INTOXICATION DIAGNOSES: - Other fpc (current) drug therapy - Blood alcohol level [...] encounter - Alcohol abuse with intoxication, unspecified INPATIENT VISIT TRACKING (12 MO.) 10/25/2021 22:22 [facility] [place] TYPE: Medical Surgical DIAGNOSES: - Acute respiratory failure with hypoxia - Hypokalemia - Other acute pancreatitis without necrosis or infection - Local infection of the skin and subcutaneous tissue, unspecified - Other specified abnormal findings of blood chemistry - COVID-19 - Other acute osteomyelitis, left ankle and foot - Hypoxemia 08/31/2021 17:49 [facility] [place] TYPE: Medical Surgical DIAGNOSES: 0. Sepsis, unspecified organism 0. Acute respiratory failure with hypoxia 1. Sepsis due to streptococcus, group A 1. Metabolic encephalopathy 2. Acute respiratory failure with hypoxia 3. Acute respiratory failure with hypercapnia 4. Metabolic encephalopathy 5. Acidosis 5. Pneumonia due to coronavirus disease 2018 6. Unspecified bacterial pneumonia 6. Cellulitis of left lower limb 7. Chronic pulmonary edema 7. COVID-19 8. Other forms of acute ischemic heart disease 8. Acidosis 9. Gangrene, not elsewhere classified 9. Cellulitis of left lower limb 10. Hyperosmolality and hypernatremia 10. Chronic pulmonary edema 11. Other forms of acute ischemic heart disease 11. Ileus, unspecified 12. Moderate protein-calorie malnutrition 12. Gangrene, not elsewhere classified 13. Hyperosmolality and hypernatremia 13. Other pancytopenia 14. Ileus, unspecified 14. Other osteomyelitis, ankle and foot 15. Severe sepsis without septic shock 15. Moderate protein-calorie malnutrition 16. Other pancytopenia 16. Hyperkalemia 17. Homelessness unspecified 17. Other osteomyelitis, ankle and foot 18. Severe sepsis without septic shock 18. Alcoholic cirrhosis of liver without ascites 19. Hyperkalemia 19. Epilepsy, unspecified, not intractable, without status epilepticus 20. Other stimulant abuse, uncomplicated 20. Homelessness unspecified 21. Other disorders of phosphorus metabolism 21. Alcoholic cirrhosis of liver without ascites 22. Hypokalemia 22. Epilepsy, unspecified, not intractable, without status epilepticus 23. Other streptococcus as the cause of diseases classified elsewhere 23. Other stimulant abuse, uncomplicated 24. Do not resuscitate 24. Other disorders of phosphorus metabolism 25. Hepatic failure, unspecified without coma 25. Hypokalemia 26. Body mass index [BMI] 36.0-36.9, adult 26. Other streptococcus as the cause of diseases classified elsewhere 27. Pediculosis due to Pediculus humanus capitis 27. Do not resuscitate 28. Schizophrenia, unspecified 28. Hepatic failure, unspecified without coma 29. Body mass index [BMI] 36.0-36.9, adult 29. Bronchitis, not specified as acute or chronic 30. Other chronic pain 30. Pediculosis due to Pediculus humanus capitis 31. Cervicalgia 31. Schizophrenia, unspecified 32. Bronchitis, not specified as acute or chronic 32. Dysphagia, unspecified 33. Other chronic pain 34. Cervicalgia 35. Dysphagia, unspecified 36. Encounter for immunization 07/18/2021 21:58 [facility] TYPE: General Medicine DIAGNOSES: . Paresthesia of skin . Alcoholic cirrhosis of liver without ascites . Spinal stenosis, cervical region 59606. Fall from non-moving wheelchair, initial encounter 24645. Alcohol abuse, uncomplicated [email or web address]
[2021-11-21] MEDS ORDERED: POTASSIUM CHLO20 ME1 PO (01:07)
--- NOTE | 2021-11-21 07:22 | EKG ---
[facility] [address] [facility] [facility] [address] [place], [place] [address] Signed Normal sinus rhythm Minimal voltage criteria for LVH, may be normal variant ( R in aVL ) Prolonged QT Abnormal ECG When compared with ECG of 17-DEC-2020 09:45, QT has lengthened Confirmed by DURGA RIVAS MD ([id number]) on 11/21/2021 7:22:51 AM Electronically Signed By: DURGA RIVAS MD 11/21/21 0722 PATIENT NAME: BRITTANY MANUEL Electrocardiogram DATE OF : 65 PHYSICIAN: DURGA RIVAS MD REPORT #: [id number] REPORT IS CONFIDENTIAL AND NOT TO BE RELEASED WITHOUT AUTHORIZATION
== END 2021-11-21 01:41 | disposition home or self-care (01) ==
LOC: ED 17:41
DX: S99.922A Unspecified injury of left foot, initial encounter (principal); T81.30XA Disruption of wound, unspecified, initial encounter; E87.6 Hypokalemia; R45.851 Suicidal ideations; K21.9 Gastro-esophageal reflux disease without esophagitis; M86.9 Osteomyelitis, unspecified; F20.9 Schizophrenia, unspecified; F32.A Depression, unspecified; F41.9 Anxiety disorder, unspecified; F17.200 Nicotine dependence, unspecified, uncomplicated; Z88.2 Allergy status to sulfonamides; Z88.1 Allergy status to other antibiotic agents; Z79.899 Other long term (current) drug therapy; W22.8XXA Striking against or struck by other objects, initial encounter
CPT/HCPCS: 36415; 73630; 80053; 81001; 84132; 84443; 85025; 93005; 93010; 96365; 96366; 99284-25; G0480; J3480

== ENCOUNTER 2021-12-02 20:27 | Emergency (ER) | payer MEDICARE, OTHER ==
[~2021-12-02] VITALS: Ht 182.9 cm; Wt 113.5 kg
[~2021-12-02 20:27] MED LIST changes: +POTASSIUM CHLO20 ME1 PO
--- OUTSIDE RECORDS SUMMARY | 2021-12-02 20:30 | XMS ---
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 Care History Medical/Surgical 11/21/2021 [facility] RECVD CASE MANAGEMENT CONSULT- HELP PATIENT WITH CLOSE FOLLOW UP WITH PRIMARY CARE PHYSICIAN AND HOUSING RESOURCES AND OR PLACEMENT. PATIENT PCP DR NGUYEN NOTIFIED OF PATIENT BEING BACK IN THE AREA. CHWS AT THE CLINIC NOTIFIED OF PATIENT CLOSE FOLLOW UP NEEDS AND POSSIBLE PLACEMENT AVAILABILITY. 11/20/2021 [facility] CHW CALLED PATIENT AT A CONTACT NUMBER [phone]. NUMBER WAS NOT IN [employer]. RETRIEVED THE NUMBER FROM THE CLINIC. PATIENT STATED HE IS NO LONGER AT THE [place] OF TODAY HE HAD TO LEAVE. HE IS WANTING TO GO TO [facility]- THEY ARE FULL AT THIS TIME. CHW PROVIDED [place] ADDRESS AND CONTACT NUMBER FOR HELP WITH RESOURCES. CHW PROVIDED [employer] CONTACT INFORMATION FOR HOUSING SUPPORT. PATIENT CURRENTLY NOT ENROLLED IN SERVICES WITH [facility]. PATIENT STATED HE APPLIED FOR APD SERVICES THROUGH [facility] AND WAS NOT QUALIFIED FROM THE ASSESSMENT LAST WEEK 11/11/2021. PATIENT PHONE DURING THE CONVERSATION. UNABLE TO GET A HOLD OF THE PATIENT AND THE PATIENT DOES NOT HAVE A VOICEMAIL SET UP. 07/23/2021 [facility] No follow ups scheduled with PCP at this time. E.D. VISIT COUNT (12 MO.) [address] [facility] 3 [facility] 1 [facility] 1 [place] 5 [facility]. TOTAL 13 NOTE: Visits indicate total known visits. ED/UCC VISIT TRACKING (12 MO.) 12/02/2021 20:28 [facility] [place] TYPE: Emergency COMPLAINT: - LEFT SIDE WEAKNESS 11/20/2021 17:42 [facility] [place] TYPE: Emergency COMPLAINT: - WOUND CHECK DIAGNOSES: - Striking against or struck by other objects, initial encounter - Other [place] [facility] [place]current[facility] drug therapy - Anxiety disorder, unspecified - Disruption of wound, unspecified, initial encounter - Hypokalemia - Pain in left foot - Nicotine dependence, unspecified, uncomplicated - Schizophrenia, unspecified - Unspecified injury of left foot, initial encounter - Osteomyelitis, unspecified - DEPRESSION, UNSPECIFIED - Gastro-esophageal reflux disease without esophagitis - Allergy status to other antibiotic agents - Allergy status to sulfonamides - Suicidal ideations 10/25/2021 22:22 [facility] [place] TYPE: Emergency DIAGNOSES: - Hypokalemia - SOB; [place] - Hypoxemia - Other specified abnormal findings of blood chemistry - Other acute pancreatitis without necrosis or infection 10/25/2021 10:02 [facility] TYPE: Psychiatric Emergency DIAGNOSES: - Adjustment disorder with depressed mood - [facility] 10/18/2021 10:02 [facility] [place] TYPE: Emergency COMPLAINT: - COVID-19 DIAGNOSES: 1. COVID-19 2. Encounter for other administrative examinations 3. Nicotine dependence, cigarettes, uncomplicated 08/31/2021 17:49 [facility] [place] TYPE: Emergency COMPLAINT: - SEPSIS, ACUTE RESPIRATORY FAILURE WITH HYPOXIA DIAGNOSES: 0. Acute respiratory failure with hypoxia 0. Sepsis, unspecified organism 08/08/2021 18:43 [facility] [place] TYPE: Emergency DIAGNOSES: - HOMELESSNESS UNSPECIFIED - COUGH, UNSPECIFIED 08/01/2021 01:08 [facility] TYPE: Emergency DIAGNOSES: 24238. Acute upper respiratory infection, unspecified 07/31/2021 17:45 [facility] TYPE: Emergency DIAGNOSES: 26277. SOB; Cough; [place]; Chills 07/18/2021 21:58 [facility] TYPE: Emergency DIAGNOSES: 03665. Fall out of WC onto face 82030. Spinal stenosis, cervical region . Fall from non-moving wheelchair, initial encounter 69032. Alcohol abuse, uncomplicated 34701. Paresthesia of skin 07/18/2021 11:30 [facility] [place] TYPE: Emergency COMPLAINT: - NEK PAIN DIAGNOSES: - Allergy status to other antibiotic agents - Other fall from one level to another, initial encounter - Nicotine dependence, unspecified, uncomplicated - Allergy status to sulfonamides - Sprain of ligaments of cervical spine, initial encounter - Gastro-esophageal reflux disease without esophagitis - Other [place] [facility] [place]current[facility] drug therapy - Radiculopathy, cervical region [...] - Nicotine dependence, unspecified, uncomplicated - Other [place] [facility] [place]current) drug therapy 07/05/2021 19:22 [facility] [place] TYPE: Emergency COMPLAINT: - INTOXICATION DIAGNOSES: - Other intermission coordinator (current) drug therapy - Blood alcohol level [...] INPATIENT VISIT TRACKING (12 MO.) 10/25/2021 22:22 [facility] [place] TYPE: Medical Surgical DIAGNOSES: - Acute respiratory failure with hypoxia - Hypokalemia - Other acute pancreatitis without necrosis or infection - Local infection of the skin and subcutaneous tissue, unspecified - Other specified abnormal findings of blood chemistry - COVID-19 - Other acute osteomyelitis, left ankle and foot - Hypoxemia 08/31/2021 17:49 [facility] [place] TYPE: Medical Surgical DIAGNOSES: 0. Sepsis, [...] unspecified 36. Encounter for immunization 07/18/2021 21:58 [facility] TYPE: General Medicine DIAGNOSES: . Paresthesia of skin . Alcoholic cirrhosis of liver without ascites . Spinal stenosis, cervical region . Fall from non-moving wheelchair, initial encounter . Alcohol abuse, uncomplicated [email or web address]
[2021-12-03] MEDS ORDERED: CEPHALEXIN500 MG PO (01:56)
== END 2021-12-03 03:13 | disposition home or self-care (01) ==
LOC: ED 20:27
DX: L03.116 Cellulitis of left lower limb (principal); K21.9 Gastro-esophageal reflux disease without esophagitis; M86.9 Osteomyelitis, unspecified; F17.200 Nicotine dependence, unspecified, uncomplicated; Z88.2 Allergy status to sulfonamides; Z88.1 Allergy status to other antibiotic agents; Z79.899 Other long term (current) drug therapy
CPT/HCPCS: 36415; 73630; 80503; 85025; 96372; 99283-25; J0696

== ENCOUNTER 2021-12-06 17:20 | Emergency (ER) | payer MEDICARE, OTHER ==
[~2021-12-06] VITALS: Ht 182.9 cm; Wt 109.5 kg
[~2021-12-06 17:20] MED LIST changes: +CEPHALEXIN500 MG PO
--- OUTSIDE RECORDS SUMMARY | 2021-12-06 17:22 | XMS ---
PreManage Notification: BRITTANY MANUEL Security Eyedotter Events No recent Security Events currently on file CRITERIA MET - 6 ED Visits in 6 Months - [facility] - 2 Visits in 30 Days - ED - Positive COVID-19 Lab Result - OHA - [facility] - Has Care Guidelines - PDMP - [facility] - 3 Facilities in 90 Days CARE PROVIDERS Berta [place] GREGORIA Internal Medicine Current PHONE: Unknown ARCENIO NGUYEN Internal Medicine 10/01/2020-Current PHONE: [phone] Tony has no Care Guidelines for this patient. Care History Medical/Surgical 12/04/2021 [facility] Patient came into ED after Clinic hours. Patient has a televisit with PCP Dr. Nguyen today, 12/04/2021 at 3:40 pm. 12/03/2021 [facility] -PATIENT HAS AN APT WITH DR NGUYEN TO ESTABLISH CARE ON 10/09/20. - Patient is currently established with [facility]. If patient is seen in the ED during business hours. Please contact CHWs at [facility]. Care Recommendation: If this patient has had 5 or more Emergency Department visits in the last 12 months.\T\nbsp; Patient will require education on the scope and purpose of the ED as an acute care provider not a Primary Care Provider and should not be utilized for chronic conditions.\T\nbsp; These are guidelines and the provider should exercise clinical judgment when providing care. 11/21/2021 [facility] RECVD CASE MANAGEMENT CONSULT- HELP PATIENT WITH CLOSE FOLLOW UP WITH PRIMARY CARE PHYSICIAN AND HOUSING RESOURCES AND OR PLACEMENT. PATIENT PCP DR NGUYEN NOTIFIED OF PATIENT BEING BACK IN THE AREA. CHWS AT THE CLINIC NOTIFIED OF PATIENT CLOSE FOLLOW UP NEEDS AND POSSIBLE PLACEMENT AVAILABILITY. E.D. VISIT COUNT (12 MO.) 1 [facility]enez 2 [facility] 3 [facility] 1 [facility] 1 [place] 6 [facility]. TOTAL 14 NOTE: Visits indicate total known visits. ED/UCC VISIT TRACKING (12 MO.) 12/06/2021 17:20 [facility] [place] TYPE: Emergency COMPLAINT: - ABD PAIN 12/02/2021 20:28 [facility] [place] TYPE: Emergency COMPLAINT: - LEFT SIDE WEAKNESS DIAGNOSES: - Osteomyelitis, unspecified - Nicotine dependence, unspecified, uncomplicated - Allergy status to sulfonamides - Gastro-esophageal reflux disease without esophagitis - Allergy status to other antibiotic agents - Weakness - Cellulitis of left lower limb - Other retirement (current) drug therapy 11/20/2021 17:42 [facility] [place] TYPE: Emergency COMPLAINT: - WOUND CHECK DIAGNOSES: - Striking against or struck by other objects, initial encounter - Other retirement (current) drug therapy - Anxiety disorder, unspecified [...] to sulfonamides - Suicidal ideations 10/25/2021 22:22 [facility] [place] TYPE: Emergency DIAGNOSES: - Hypokalemia - SOB; [place] - Hypoxemia - Other specified abnormal findings of blood chemistry - Other acute pancreatitis without necrosis or infection 10/25/2021 10:02 [place] TYPE: Psychiatric Emergency DIAGNOSES: - Adjustment disorder with depressed mood - [facility] 10/18/2021 10:02 [facility] [place] TYPE: Emergency COMPLAINT: - COVID-19 DIAGNOSES: 1. COVID-19 2. Encounter for other administrative examinations 3. Nicotine dependence, cigarettes, uncomplicated 08/31/2021 17:49 [facility] [place] TYPE: Emergency COMPLAINT: - SEPSIS, ACUTE RESPIRATORY FAILURE WITH HYPOXIA DIAGNOSES: 0. Acute respiratory failure with hypoxia 0. Sepsis, unspecified organism 08/08/2021 18:43 [facility] TYPE: Emergency DIAGNOSES: - HOMELESSNESS UNSPECIFIED - COUGH, UNSPECIFIED 08/01/2021 01:08 [facility] TYPE: Emergency DIAGNOSES: . Acute upper respiratory infection, unspecified 07/31/2021 17:45 [facility] TYPE: Emergency DIAGNOSES: 37506. SOB; Cough; BONILLA; Chills 07/18/2021 21:58 [facility] TYPE: Emergency DIAGNOSES: 67754. Fall out of WC onto face . Spinal stenosis, cervical region . Fall from non-moving wheelchair, initial encounter [id number]. Alcohol abuse, uncomplicated 24540. Paresthesia of skin 07/18/2021 11:30 [facility] [place] TYPE: Emergency COMPLAINT: - NEK PAIN DIAGNOSES: - Allergy status to other antibiotic agents - Other fall from one level to another, initial encounter - Nicotine dependence, unspecified, uncomplicated - Allergy status to sulfonamides - Sprain of ligaments of cervical spine, initial encounter - Gastro-esophageal reflux disease without esophagitis - Other retirement (current) drug therapy - Radiculopathy, cervical region [...] - Nicotine dependence, unspecified, uncomplicated - Other regional ehs manager (current) drug therapy 07/05/2021 19:22 [facility] [place] TYPE: Emergency COMPLAINT: - INTOXICATION DIAGNOSES: - Other regional ehs manager (current) drug therapy - Blood alcohol level [...] INPATIENT VISIT TRACKING (12 MO.) 10/25/2021 22:22 [facility] [place] TYPE: Medical Surgical DIAGNOSES: - Acute respiratory failure with hypoxia - Hypokalemia - Other acute pancreatitis without necrosis or infection - Local infection of the skin and subcutaneous tissue, unspecified - Other specified abnormal findings of blood chemistry - COVID-19 - Other acute osteomyelitis, left ankle and foot - Hypoxemia 08/31/2021 17:49 [facility] [place] TYPE: Medical Surgical COMPLAINT: - SEPSIS, ACUTE RESPIRATORY FAILURE WITH HYPOXIA DIAGNOSES: 0. Sepsis, unspecified organism 0. Acute respiratory failure with hypoxia 1. Sepsis due to streptococcus, group A 1. Metabolic encephalopathy 2. Acute respiratory failure with hypoxia 3. Acute respiratory failure with hypercapnia 4. Metabolic encephalopathy 5. Acidosis 5. Pneumonia due to coronavirus disease 2019 6. Unspecified bacterial pneumonia 6. Cellulitis of [...] unspecified 36. Encounter for immunization 07/18/2021 21:58 [facility] TYPE: General Medicine DIAGNOSES: . Paresthesia of skin . Alcoholic cirrhosis of liver without ascites . Spinal stenosis, cervical region . Fall from non-moving wheelchair, initial encounter . Alcohol abuse, uncomplicated [email or web address]
[2021-12-06] MEDS ORDERED: LACTULOSE10 GM/15 M PO (17:52)
[2021-12-06] MEDS ORDERED: LEVOFLOXACIN500 MG PO (21:01)
== END 2021-12-06 21:45 | disposition home or self-care (01) ==
LOC: ED 17:20
DX: K74.60 Unspecified cirrhosis of liver (principal); J98.11 Atelectasis; K59.00 Constipation, unspecified; K21.9 Gastro-esophageal reflux disease without esophagitis; M86.9 Osteomyelitis, unspecified; F17.200 Nicotine dependence, unspecified, uncomplicated; Z88.2 Allergy status to sulfonamides; Z79.899 Other long term (current) drug therapy
CPT/HCPCS: 36415; 74177; 80053; 80503; 81001; 83690; 83735; 84443; 85025; 99284-25; G0480; J2405; Q9967

== ENCOUNTER 2021-12-09 16:52 | Inpatient (IN) | payer MEDICARE, OTHER ==
[~2021-12-09] VITALS: Ht 182.9 cm; Wt 106.0 kg
[~2021-12-09 16:52] MED LIST changes: +LACTULOSE10 GM/15 M PO; +LEVOFLOXACIN500 MG PO
[2021-12-09] MEDS ORDERED: DULOXETINE HCL60 MG PO (22:24)
[2021-12-09] MEDS ORDERED: XIFAXAN550 MG PO (22:25)
--- NOTE | 2021-12-10 03:38 | NUR ---
RECIEVED REPORT FROM ED RN, ACCOMPAINED PT TO CCU, INTIAL VITALS, ADMISSION, AND ASSESSMENT COMPLETED, PT A&OX 4 HOWEVER APPEARS FORGETFUL AND HAS SOME DIFFICULTY UNDERSTANDING QUESTIONS/COMMANDS. CRACKLES HEARD IN RIGHT UPPER AND LOWER LOBES. VITALS STABLE, RN WITH PT FOR SUICIDE RISK, PT REQUESTING WATER AND POP, TOLERATING WITHOUT ISSUE, ADDITIONAL IV PLACED IN LEFT HAND, K GTT INFUSING, ENCOURAGING PT TO REST AND REQUESTING HE LEAVE SP02 PROB AND O2 ON, WILL CONTINUE TO MONITOR AND 15 MINUTE SAFETY CHECKS.
--- NOTE | 2021-12-10 06:26 | NUR ---
PT RESTING, SIDE RAILS UPX3, RN IN ROOM WITH PT, SPOKE WITH CCS EARLIER, THEY WILL COME EVALUATE PT THIS AM, K GTT INFUSING, NO IMMEDIATE CONCERNS, AWAITING DAY SHIFT TO GIVE REPORT
--- NOTE | 2021-12-10 09:15 | NUR ---
Spoke with Yasir. He states he resided at [facility] until the end of summer. He was evaluated by [facility] and no longer qualified for longterm medicaid. Pt was reevaluated 11/20/21 and does not qualify for medicaid as he is able to propel himself, dress, feed himself, transfer, does not need help toileting. I received this information from Payal Barnett at [facility]. I called to check if he would now qualify and she states he would not. She also states he would not be able to return to [facility] as he drank and smoked pot on the premises. Pt also let me know this. Pt is homeless and living at [facility]. He has food stamps and is able to grocery shop. Pt also states he cannot return to the [facility], it is like a correction. Pt cannot return due use of alcohol and drugs. I will speak with pts to check for what their recommendations for dc.
--- NOTE | 2021-12-10 09:45 | NUR ---
DR. NGUYEN IN ROOM TO SEE PATIENT. PATIENT CONTINUES TO ENDORSE THOUGHTS OF HARMING HIMSELF. PT REMAINS WITH A CAREGIVER AT BEDSIDE MONITORING HIM 1:1 AND Q15 MINUTE SAFETY CHECKS. GUN PROFILER AT BEDSIDE WITH PATIENT 1:1. PT REMAINS ON 2 L AND SP02 IS 93%. CONTINUE TO MONITOR.
--- NOTE | 2021-12-10 10:40 | NUR ---
THIS RN AND DUDE RANCH MANAGER GAVE PT A BED BATH, AND LINEN CHANGE. LEFT FOOT WITH ULCER ON TOP OF FOOT. BACK SIDE OF BOTTOM SKIN INTACT, PT DENIES NEEDS, LAB ALSO IN TO DRAW BLOOD AND THIS RN GAVE MEDS - SWALLOWED WNL.
--- NOTE | 2021-12-10 10:50 | NUR ---
OCCUPATIONAL THERAPY IN ROOM TO SEE PATIENT AT THIS TIME. DR. NGUYEN REQUESTING THAT WE CONSULT DR. MCGRATH/CLAUDIA PODIATRY TO SEE THIS PATIENT. WILL CALL AND MAKE THIS REQUEST. HR IN THE 80s. SP02 IS 91% ON 2 L NC. LAST BP 125/95 (106). SKIFF OPERATOR REMAINS 1:1 WITH THIS PATIENT.
--- NOTE | 2021-12-10 10:53 | NUR ---
BEDBATH PROVIDED BY THIS DOCK COORDINATOR AND LAILA JARRELL. HAIR AND NAILS CLEANED. ULCER ON TOP OF LEFT FOOT NOTED. PATIENT ABLE TO ASSIST IN TURNING FOR BATH. LAB IN FOR DRAW AT THIS TIME WELL. NO OTHER NEEDS AT THIS TIME
--- NOTE | 2021-12-10 11:51 | NUR ---
CCS COMES TO SEE PATIENT BUT DECIDES NOT TO EVALUATE PATIENT ANY FURTHER TODAY AFTER LEARNING THAT HE WILL NOT BE UP FOR DISCHARGE FROM A MEDICAL STANDPOINT TODAY. PT ABLE TO TAKE PILLS W/O DIFFICULTLY. CLERK TELEVISION PRODUCTION REMAINS IN ROOM WITH PATIENT AT THIS TIME. CONTINUE JAMA ONITOR.
--- NOTE | 2021-12-10 12:38 | EKG ---
[facility] [address] [place] [address] Signed Poor data quality, interpretation may be adversely affected Normal sinus rhythm Minimal voltage criteria for LVH, may be normal variant ( R in aVL ) Nonspecific ST abnormality Prolonged QT Abnormal ECG When compared with ECG of 20-NOV-2021 19:21, No significant change was found Confirmed by ARCENIO NGUYEN MD ([id number]) on 12/10/2021 12:37:58 PM Electronically Signed By: ARCENIO NGUYEN MD 12/10/21 1238 PATIENT NAME: BRITTANY MANUEL Electrocardiogram DATE OF : 65 PHYSICIAN: ARCENIO NGUYEN MD REPORT #: [id number] REPORT IS CONFIDENTIAL AND NOT TO BE RELEASED WITHOUT AUTHORIZATION
--- NOTE | 2021-12-10 13:00 | NUR ---
Called and spoke with [facility] and asked if this pt would ever be able to return, pt was evicted and will not be accepted.
--- NOTE | 2021-12-10 13:10 | NUR ---
IN PATIENT'S ROOM AT THIS TIME. ASSESSMENT COMPLETE. WHEN ASKING PATIENT IF HE STILL FEELS LIKE HARMING HIMSELF HE STATES, "YES, I ALWAYS DO." WHEN ASKING PATIENT IF HE FEELS THE SAME HE DID YESTERDAY WHEN HE CAME IN REGARDING HIS SUICIDAL IDEATION, HE STATES, "NO, NOT BAD. THIS TIME IT JUST HIT ME WITHOUT ANY WARNING ALL OF THE SUDDEN." PATIENT ASKING ABOUT LUNCH, AND REMINDED THAT HE ALREADY HAD LUNCH BUT WE WILL ORDER HIM A SNACK. PT HELPED TO VOID 400 ML TO URINAL. CONTINUE TO SIT WITH PATIENT 1:1 OBSERVATION.
--- NOTE | 2021-12-10 13:41 | NUR ---
THIS UROLOGY SURGEON IN DIRECT OBSERVATION OF PATIENT. PATIENT IS ORIENTED AND ABLE TO HOLD A CONVERSATION, HOWEVER NOW AND THEN WILL SAY OR THINK OF SOMETHING CONFUSIONG TO HIMSELF, AND THIS UROLOGY SURGEON ALSO. PATIENT HAS A WOUND ON TOP OF LEFT FOOT AT BASE OF GREAT TOE EARLIER THIS MORNING HE STATED HE HAD NO IDEA WHERE IT CAME FROM, THIS AFTERNOON HE STATES IT'S FROM HIKING BOOTS HE USED TO WEAR AND SOMETIMES WITHOUT SOCKS. PATIENT WAITING ON 2ND LUNCH TRAY.
--- NOTE | 2021-12-10 16:35 | NUR ---
DR. TAYLOR IN ROOM TO SEE PATIENT AT THIS TIME. PATIENT'S WOUND CULTURED PER DR. TAYLOR AND WILL BE SENT TO THE LAB. WOUND MEASUREMENTS ARE 3.9 LENGTH X 1.1 WIDTH X 0.4 DEPTH CM. WOUND IS COVERED WITH IODOSORB, GAUZE, KERLEX ROLL, AND COBAN. DRESSING TO BE CHANGED Q 2-3 DAYS. CONTINUE TO MONITOR.
--- NOTE | 2021-12-10 16:48 | NUR ---
ASSISTED PT WITH VOIDING INTO URINAL. PT VOIDED 400 CC.
--- NOTE | 2021-12-10 16:50 | NUR ---
Dr. Mclaughlin here for dressing change. In and spoke with he and the pt. Pt wanting to go anywhere he can be placed. feels pt will need a SNF as his wound needs dressing changes and being homeless, the wound will not heal. Discussed with pt he has burned bridges at the [facility] and [facility]. I will attempt to place him in a SNF but he will need a PT eval to see if he qualifies.
--- NOTE | 2021-12-10 17:00 | NUR ---
Called and spoke with Enrique, Adminstrator at [place]. Updated to pts needs and past problematic behavior. Updated feels pt would be ok with a 20 day stay and then discharge. He asks I fax the chart and he will review tonight and let me know in the AM. Also alerted to 5 day hold, which pt is now stating he said he was suicidal as this was the only thing he knew to say to stay in the hospital. Will follow up tomorrow.
--- NOTE | 2021-12-10 17:03 | NUR ---
UPDATED DR. TAYLOR THAT THE SWAB THAT WAS COLLECTED (RED TOP) WAS NOT THE CORRECT COLLECTION SWAB FOR ANAEROBIC/AEROBIC CULTURE, AND THAT THE WHITE TOP SWAB WAS SUPPOSED TO BE USED FOR THAT TEST. THE RED TOP SWAB WAS TO BE USED FOR THE STAT GRAM STAIN. LAB STATES THAT AEROBIC CULTURE AND GRAM STAIN WILL STILL BE ABLE TO BE EVALUATED, BUT NOT ANAEROBIC. NO FURTHER ORDERS FROM DR. TAYLOR AT THIS TIME. ESR AND CRP TO BE ADDED TO PREVIOUS LABS DRAWN TODAY.
--- NOTE | 2021-12-10 18:03 | NUR ---
PT ATTEMPTS TO VOID BUT UNABLE AT THIS TIME. CONTINUE TO MONITOR.
--- NOTE | 2021-12-10 19:30 | NUR ---
RECEIVED REPORT FROM DAY SHIFT RN. UPON ASSESSMENT PT SITTING IN BED IN NO ACUTE DISTRESS. PT REPORTS HAD A GOOD DAY ALERT AND ORIENTED X 3 , VSS, TOKK PO MEDS WELL. DENIES ANY PAIN OR SI PLANS AT THIS TIME. SITTER REMAINS AT BEDSIDE FOR SAFETY. CALL LIGHT WITHIN REACH WILL CONTINUE TO MONITOR.
--- NOTE | 2021-12-11 | NUR ---
PT SLEEPING IN BED IN NO ACUTE DISTRESS. PT RESP EVEN AND UNLABORED. SITTER REMAINS AT BEDSIDE. CALL LIGHT WITHIN REACH WILL CONTINUE TO MONITOR
--- NOTE | 2021-12-11 02:30 | NUR ---
PT SLEEPING IN BED IN NO ACUTE DISTRESS. RESP EVEN AND UNLABORED VSS SITTER REMAINS AT BEDSIDE WILL CONTINUE TO MONITOR.
--- NOTE | 2021-12-11 05:32 | NUR ---
STEEPLE JACK IN ROOM FOR BLOOD DRAW. pt AWAKENS TO VOICE. COOPERATIVE WITH CARES. ASSISTED TO USE URINAL IN BED, 475 ML VOID. LARGE INCONTINENCE IN ATTENDS AND WHITE CHUX SATURATED. ATTENDS AND CHUX CHANGED. pt DRINKING PO FLUIDS. RN REMAINS IN ROOM FOR 1:1 MONITORING FOR SAFETY.
--- NOTE | 2021-12-11 06:41 | NUR ---
pt ASSISTED TO WASH FACE. SPO2 DROPS TO 87% ON RA. 2L OXYGEN BY NC BACK IN PLACE. pt WITH DRY COUGH. DRINKING WATER, CONVERSING WITH RN. RN IN ROOM FOR CLOSE 1:1 MONITORING.
--- NOTE | 2021-12-11 07:18 | NUR ---
Pt assisted with raising head of bed to drink coffee. Pt converses and reminisces about his life and places he has lives with this RN. Pt takes out NC to readjust, O2 on RA remains at 89%. 2L NC placed back on pt, sats at 95%. 1:[address]
--- NOTE | 2021-12-11 07:40 | NUR ---
Spoke with pt and he asks if I can check for an AFC for him as he does get medicare. Informed I can call. I am awaiting to hear from [facility] as I messaged them this am and asked if they can accept this pt. Received a response they will know after their 9 am meeting.
--- NOTE | 2021-12-11 08:33 | NUR ---
IN PATIENT'S ROOM FOR ASSESSMENT AND ROUTER OPERATOR PIN. PT UP TO CHAIR AFTER SPILLING COFFEE ON SELF. PT ABLE TO TAKE MEDS WELL. PT DENIES SUICIDAL IDEATION AT THIS TIME.
--- NOTE | 2021-12-11 10:44 | NUR ---
DR. NGUYEN IN TO SEE PATIENT. PATIENT TO HAVE ADDITIONAL DOSE OF LACTULOSE TODAY. PT EAGER TO WALK IN HALLWAY WITH PHYS THERAPY. PT ALSO WAITING ON HIS ICED TEA TO ARRIVE. PT SEEMS TO HAVE SOME CONFUSION AT TIMES, ASKING ABOUT THE WIRELINE OPERATOR OF THIS HOSPITAL WHO HE BELIEVES TO BE NAMED "LES." REMINDED PATIENT THAT HE IS AT [facility]. PT ALSO ASKING, "WHERE YOU THE ONE I SAT AND ATE A BOWL FULL OF CHERRIES WITH YESTERDAY?" DISCUSSED WITH PATIENT THAT TO MY KNOWLEDGE, THERE WEREN'T ANY CHERRIES PROVIDED TO HIM, BUT THERE WERE GRAPES. PUBLISHING SPECIALIST REMAINS IN ROOM MONITORING 1:1.
--- NOTE | 2021-12-11 11:05 | NUR ---
PATIENT IS MISSING HIS LITTLE "BROWN AND BLUE" BACKPACK. PATIENT STATES HIS WALLET AND SMALL TABLET WERE IN IT. PATIENT STATES IT MUST HAVE BEEN LEFT AT THE [place]ARK [place] HE STA[place]. PATIENT HAS 2 "BELONGINGS BAGS" HERE AT HOSPITAL BUT NEITHER CONTAIN THE BACKPACK. PATIENT AGREED TO ALLOW THIS STREET CAR INSPECTOR TO TAKE HIS CLOTHING HOME AND WASH THEM. P/T IN ROOM AT THIS TIME.
--- NOTE | 2021-12-11 11:44 | NUR ---
CCS IN ROOM TO SEE PATIENT AROUND 1100 AND HAVE NOW CLEARED PATIENT FROM HIS DIRECTOR'S HOLD. PT IS NO LONGER ON 1:1 PRECAUTIONS FOR SUICIDE WATCH. PATIENT STILL DOSE NOT ENDORSE THOUGHTS OF HARMING HIMSELF AT THIS TIME. DISCUSSED WITH PATIENT PLAN OF CARE AND THE NEED TO USE CALL LIGHT TO VOICE HIS CONCERNS/NEEDS THERE WILL NO LONGER BE A CAREGIVER IN HIM ROOM 13/04. PATIENT AGREEABLE AND AGREES TO USE CALL LIGHT. PT IS CONCERNED ABOUT THE WHEREABOUTS OF HIS BACKPACK, WHICH DID NOT ARRIVE WITH HIM IN CCU. PT STATES THIS BACKPACK HAS HIS ID AND HIS PHONE. PT STATES HE USES THIS BACKPAKC A PILLOW HE SLEEPS OUTSIDE, HE IS CURRENTLY HOMELESS. ASSESSMENT OTHERWISE UNCHAGNED FROM THIS AM.
--- NOTE | 2021-12-11 12:18 | NUR ---
PATIENT SAT ON BSC FOR ROUGHLY 10 MINUTES AND WAS UNABLE TO HAVE BM. PATIENT DOES FEEL THE URGE TO HAVE A BM, SO PLAN IS TO ATTEMPT AGAIN AFTER LUNCH.
--- NOTE | 2021-12-11 13:26 | NUR ---
PATIENT BACK ON BSC. WILL CALL WHEN READY
--- NOTE | 2021-12-11 15:45 | NUR ---
patient back to chair, assessment completed from transfer, wound dressing in place, drainage noted with some foul odor. Patient states he hopes they find him a place to go tomorrow, besides the street.
--- NOTE | 2021-12-11 16:12 | NUR ---
patient sitting in the chair, took medications without any difficulty. has no thoughts of suicide at this time.
--- NOTE | 2021-12-11 16:15 | NUR ---
Called and messaged [facility] x 3 today. Received return message they have accepted other admits and cannot take this pt.
--- NOTE | 2021-12-11 18:43 | NUR ---
patient is frequently urinating large amounts with incontinence of urine and stool as well. Patient is stooling as expected with taking Lactulose. The CNAs have had to change him multiple episodes even immediately after taking him to the bathroom.
--- NOTE | 2021-12-11 19:22 | NUR ---
IN ROOM FOR REPORT, PT IS REQUESTING TO TAKE HIS MEDICATIONS AT 830PM [facility]. ADVISED PT THIS RN WILL DO HER BEST TO RETURN AT THAT TIME. PT DENIES FURTHER NEEDS. CALL LIGHT IS CLOSE.
--- NOTE | 2021-12-11 20:45 | NUR ---
IN TO ASSIST RN WITH VS, PT ASSISTED UP TO THE TOILET, 1PA/SBA FWW, BM AND UNMEASURED VOID, ROOM TIDY, NO FURTHER NEEDS AT THIS TIME
--- NOTE | 2021-12-11 21:20 | NUR ---
ADMINISTERED EVENING MEDICATIONS PER ORDERS. PT REPORTS PRODUCTIVE COUGH EARLIER TODAY AND STATES HE HAS SOME SOB WITH MOVEMENT. DRESSING ON L FOOT IS INTACT WITH A SCANT AMOUNT OF DRAINAGE NOTED AT EDGE OF DORSAL FOOT. ORDERS TO CHANGE IN 2 DAYS. PLACED SMALL PEICE OF GAUZE OVER TO REINFORCE. PT DENIES FURTHER NEEDS AT THIS TIME CALL LIGHT IS CLOSE.
--- NOTE | 2021-12-11 23:35 | NUR ---
IN ROOM TO GIVE LACTULOSE, PT DENIES FURTHER NEEDS. CALL LIGHT IS CLOSE.
--- NOTE | 2021-12-12 01:51 | NUR ---
PT IS RESTING WITH EYES CLOSED, RR IS EVEN AND UNLABORED. CALL LIGHT IS CLOSE.
--- NOTE | 2021-12-12 03:15 | NUR ---
in to assist pt with a new gown after spill, pt ready for rn to come back
--- NOTE | 2021-12-12 03:24 | NUR ---
PT MISSED HIS URINAL, THIS RN TRIED TO CLEAN UP FLOOR. WILL HAVE ES MOP IN THE MORNING. PT IS NOW SITTING IN HIS CHAIR AND DENIES FURTHER NEEDS. CALL LIGHT IS CLOSE.
--- NOTE | 2021-12-12 05:00 | NUR ---
CHRISTINA BREONNA IN THE ROOM TO GIVE PT A BED BATH AND CLEAN UP URINE SPILL.
--- NOTE | 2021-12-12 07:45 | NUR ---
REPORT RECEIVED FROM NIGHT RN AND PT. CARE RESUMED. PT. IS VERY DROWSY BUT AWAKENS EASILY TO VOICE. HE DENIES PAIN AT THIS TIME. ORIENTED TO ALL. IV SITES WNL AND FLUSH WELL. EXP. WHEEZES PRESENT THROUGHOUT LUNGS AND CRACKLES PRESENT IN BASES. LEFT FOOT DRESSING IS DRY AND INTACT WITH A SMALL AMOUNT OF SHADOWING. +1 EDEMA BLE. BOWEL TONES HYPERACTIVE THROUGHOUT AND ABDOMEN NONTENDER. DISCUSSED MEDS, POC AND SAFETY. PT. LEFT RESTING WITH CALL LIGHT IN REACH.
--- NOTE | 2021-12-12 10:10 | NUR ---
PT WAS UP IN CHAIR, ASSISTED PT BACK TO BED, NEW BRIEF PROVIDED, PERICARE DONE. VS/I&O DONE. PT CALL LIGHT WITHIN REACH. PT IS HYPERTENSIVE, PT ASYMPTOMATIC RN NOTIFED. NO ASSISTANCE NEEDED AT THIS TIME.
--- NOTE | 2021-12-12 10:48 | NUR ---
ROUNDING ON PATIENT. HE IS IN THE SHOWER WITH WINDOW/DISTRIBUTION CLERK ASSISTING. WILL CHECK BACK LATER.
--- NOTE | 2021-12-12 11:29 | NUR ---
asssisted pt to br, pt had bm, assisted pt with shower, new brief, pt up to chair, call light within reach. linens changed.
--- NOTE | 2021-12-12 11:33 | NUR ---
PT HAS HAD SEVERAL LARGE BOWEL MOVEMENTS THIS MORNING. PER MD ORDER IN EMAR, LACTULOSE ORDER CHANGED TO TID.
--- NOTE | 2021-12-12 12:16 | NUR ---
ROUNDING ON PT. HE IS UP IN THE CHAIR EATING AND MORE ALERT NOW. PT. DENIES NEEDS AT THIS TIME.
--- NOTE | 2021-12-12 13:00 | NUR ---
Spoke with Yasir and updated he was declined by [facility] and [facility]. He asks if there is anywhere I can send him. Let him know I will make a couple more calls.
--- NOTE | 2021-12-12 13:34 | NUR ---
COMPLETING PRE-OP CHECKLIST WITH PATIENT. HE DENIES PAIN AND FURTHER NEEDS AT THIS TIME. WILL REMOVE DENTURES AND GLASSES PRIOR TO PROCEDURE.
--- NOTE | 2021-12-12 13:37 | NUR ---
ROUNDING ON PT. HE ASKED THIS NURSE TO CONTACT CASE MANAGEMENT BECAUSE HE WOULD LIKE HER TO KNOW [facility] HAS A LIST OF FOSTERCARE PROVIDERS HE COULD USE FOR DISCHARGE. REASSURED PT. THAT WHARF TENDER HELPER IS AWARE. HE DENIES FURTHER NEEDS. LEFT RESTING WITH CALL LIGHT IN REACH.
--- NOTE | 2021-12-12 14:00 | NUR ---
Called and spoke with Sanjuanita leigh [facility]. They are familiar with Yasir. She contacted [facility] they state he has approached them to stay there in the past. They are not a medical facility and he has too many needs for them to assist him. They also do not have any ADA rooms, they are in the process of contructing. I also called [facility]. They said pt could arrive by 4 pm, if they have any beds available he could stay. They never know how many beds they will have. If there are 0 beds he will be on his own. At this point, I think pt will need to be discharged back to [facility] where he has been living. He would be able to remain in town near his Drs. I called and left a message for Abbie Dallas from [facility] complex placement. I did not receive a return call. I will ask the CM tomorrow to try and contact her again.
--- NOTE | 2021-12-12 15:58 | NUR ---
DRESSING SATURATED WITH URINE FROM INCONT VOID. DRESSING REMOVED AND FOOT WASHED WITH SOAP AND WATER. DRESSING APPLIED PER DR ORDER. PT TOLERATED WELL.
[2021-12-12] MEDS ORDERED: OLANZAPINE10 MG PO (17:46)
[2021-12-12] MEDS ORDERED: OLANZAPINE5 MG PO (17:47)
[2021-12-12] MEDS ORDERED: GABAPENTIN100 MG PO (17:47)
[2021-12-12] MEDS ORDERED: AMLODIPINE BESYL5 MG PO (18:18)
[2021-12-12] MEDS ORDERED: FLOVENT HFA12 GM INH (18:18)
--- NOTE | 2021-12-12 19:30 | NUR ---
SHIFT REPORT RECEIVED FROM NIRMAL ULLOA. PT UP TO USE URINAL AND BACK TO BED. NO OTHER NEEDS. CALL LIGHT IN REACH.
--- NOTE | 2021-12-12 21:50 | NUR ---
IN TO GET VITALS, FRESH ICE WATER, SODA PROVIDED, TRASH EMPTIED, NO FURTHER NEEDS AT THIS TIME
--- NOTE | 2021-12-12 22:20 | NUR ---
ASSESSMENT COMPLETED. SCHEDULED MEDS PROVIDED. GCS 15, A&O X4. LUNGS CLEAR IN ALL LOBES AND DIM IN LOWER LOBES. HEART TONES REGULAR. PT REPORTS NUMBNESS AND TINGLING IN HANDS AND FEET, CHRONIC. PULSES INTACT. ABD SOFT, NONTENDER, BOWEL TONES ACTIVE. LEFT FOOT DRESSING CDI. IVs WNL, CDI, FLUSHED WELL. ICE WATER PROVIDED. NO OTHER NEEDS. CALL LIGHT IN REACH.
--- NOTE | 2021-12-13 00:11 | NUR ---
PT CALLS TO HAVE HIMSELF CLEANED UP. PT URINATED IN BED AND ON FLOOR. BEDDING CLEANED NEW BRIEFS PROVIDED. ROOM CLEANED. EDUCATION PROVIDED CONCERNING CALLING TO USE URINAL OR BATHROOM. PT BECOMES VERBALLY AGGRESSIVE, REDIRECTED. NO OTHER NEEDS AT THIS TIME. BED ALARM ON, CALL LIGHT IN REACH.
--- NOTE | 2021-12-13 00:41 | NUR ---
PT BED ALARMING, PT LAYING ACROSS BED SIDEWAYS. ATTEMPTED TO ASSIST PT IN REPOSITIONING WHEN PT BECAME ANGRY AND YELLED "THEN GET THE FUCK OUT" WHEN TOLD HE COULD NOT PULL ON RN ARM. PT EDUCATED CONCERNING VERBALLY ABUSING STAFF. PT ASSITED TO CHAIR, SBA FWW. SODA PROVIDED. NO OTHER NEEDS. CALL LIGHT IN REACH.
--- NOTE | 2021-12-13 03:10 | NUR ---
IN TO CHECK ON PT, SEE IF PT NEEDS TO VOID, PT RESTING IN CHAIR, ASSISTED PT UP FROM CHAIR, 1PA FWW TO THE TOILET AFTER PT DECLINED OFFER OF USING THE URINAL, PT WALKS INTO THE BATHROOM AND FEELING WEAKER, PULLED BSC CLOSE FOR PT TO SIT, RN CALLED INTO FOR ASSISTANCE, PT PIVOTS TO THE TOILET, NO VOID OR BM, ATTENDS [facility], 1-2PA FWW TO BED, BED ALARM SET, NO FURTHER NEEDS AT [facility] TIME
--- NOTE | 2021-12-13 03:30 | NUR ---
PT 2PA, FWW FROM BR AND BACK TO BED. ASSESSMENT COMPLETED. PT HAS NOT SLEPT MUCH THIS SHIFT AND IS VERY TIRED AND WEAK. LUNGS CLEAR WITH DIM LOWER LOBES. PT DENIES PAIN AND NAUSEA. IVs WNL. PT DENIES SOB WITH ACTIVITY. JUICE PROVIDED. NO OTHER NEEDS. CALL LIGHT IN REACH.
--- NOTE | 2021-12-13 04:30 | NUR ---
BED ALARM SOUNDING. PT ASSISTED TO REPOSITION. NO OTHER NEEDS. BED ALARM ON, CALL LIGHT IN REACH.
--- NOTE | 2021-12-13 04:55 | NUR ---
IN TO GET VITALS, I&Os, NO FURTHER NEEDS, BED ALARM REMAINS ON
--- NOTE | 2021-12-13 05:10 | NUR ---
BED ALARM SET OFF, PT HAS LEGS OFF THE BED, PT REMEMBERS IT STILL EARLY AND REDIRECTS SELF TO LAY BACK IN BED, BED ALARM RESET
--- NOTE | 2021-12-13 05:21 | NUR ---
PT CALLS TO GET UP TO CHAIR. 1PA WITH FWW TO CHAIR. PT ATTEMPTS TO USE URINAL WITHOUT SUCCESS. NO OTHER NEEDS. CALL LIGHT IN REACH.
--- NOTE | 2021-12-13 07:50 | NUR ---
THIS NURSE WAS WALKING BY PATIENT'S ROOM AND HEARD "HEY, COME HERE!" THE PATIENTED WAS FOUND SITTING ON THE FLOOR WITH LEGS CROSSED. HE STATES HE ATTEMPTED TO TRANSFER HIMSELF FROM BED TO CHAIR ALONE AND SLID DOWN TO THE GROUND DUE TO WEAKNESS AND HE WAS NOT HURT. VITALS TAKEN AND STABLE. NO INJURIES APPARENT FROM VISUAL ASSESSMENT. PT ASSISTED WITH CHANGING GOWN, TRANSFERRING TO CHAIR WITH FWW AND 1PA. CHAIR ALARM ON AND CALL LIGHT IN REACH. PT. GIVEN MORNING MEDS. PT. INTERVIEWED BY CHARGE FOR FALL HUDDLE.
--- NOTE | 2021-12-13 08:30 | NUR ---
PT WAS IN CHAIR. LAILA KINNEY IN THE ROOM. THIS WAFER PRODUCTION WORKER TOOK VITALS. CALL LIGHT IS WITHIN REACH. WHITEBOARD UPDATED. NO FURTHER NEEDS AT THIS TIME.
--- NOTE | 2021-12-13 10:00 | NUR ---
PT. IS RESTING WITH EYES CLOSED. ORIENTED TO ALL. IV SITES WNL AN FLUSH. LEFT FOOT DRESSING HAS A SMALL AMOUNT OF SEROSANGUINOUS SHADOWING BUT IS OTHERWISE DRY AND INTACT. HE DENIES PAIN AT THIS TIME. PT. ENCOURAGED TO PARTICIPATE IN CARE AND ADLs. DISCUSSED POC, SAFETY AND MEDS. CHAIR ALARM ON. PT. LEFT RESTING WITH CALL LIGHT IN REACH.
--- NOTE | 2021-12-13 11:22 | NUR ---
RECVD CALL BACK FROM [facility] INTAKE. AT THIS TIME THEY DO NOT HAVE ANY BED SPACE AVAILABLE AND CURRENTLY HAVE 118 QUALIFIED APPLICANTS ON THE WAITLIST. THIS DOES NOT INCLUDE [employer] SERVICES. IF PATIENT IS INTERESTED IN DETOX SERVICES WE ARE TO CONTACT ANA LILIA @ [phone].
--- NOTE | 2021-12-13 11:36 | NUR ---
AB [facility]AR[facility] AT [facility] COMPLES PLACEMENT TEAM.
--- NOTE | 2021-12-13 12:10 | NUR ---
ROUNDING ON PT. HE IS EATING LUNCH IN THE CHAIR. DENIES NEEDS AT THIS TIME.
--- NOTE | 2021-12-13 15:09 | NUR ---
PT. UP IN THE CHAIR AFTER WORKING WITH P.T. ALARM ON. LEFT FOOT DRESSING UNCHANGED. TRACE EDEMA PRESENT IN BLE. IV SITES WNL. PT. IS WEARING NC 02. WHEN ASKED WHO PUT IT ON HIM HE STATES "I DID. IT MAKES ME FEEL BETTER". O2 IS 0L. O2 SAT IS 91%. PT. DENIES PAIN AND IS EATING SNACKS. LEFT RESTING WITH CALL LIGHT IN REACH.
--- NOTE | 2021-12-13 19:00 | NUR ---
BEDSIDE REPORT FROM NIRMAL ULLOA, PT HAS BEEN IMPULSIVE, NEEDS TO HAVE BED/CHAIR ALARM ON AT ALL TIMES. PER NIRMAL ULLOA PT HAS BEEN BETTER ABOUT USING THE CALL LIGHT THIS AFTERNOON, HE DID HAVE A NEAR FALL THIS AM ON . HE VERBALIZED THAT HE WILL CALL IF HE NEEDS TO STAND UP.
--- NOTE | 2021-12-13 20:00 | NUR ---
IN TO GET VITALS, PT IS UP IN THE CHAIR, VOIDED, ICE WATER AND JUICE PROVIDED, CHAIR ALARM IS SET
--- NOTE | 2021-12-13 20:13 | NUR ---
PT SITTING UP IN RECLINER COOPERATIVE WITH CARE AT THIS TIME. NO COMPLAINTS STOOD WITH STAFF AT CHAIR SIDE, HE DID USE CALL LIGHT. HE VOIDED IN CYLINDER 200 ML CLEAR YELLOW URINE.
--- NOTE | 2021-12-13 20:24 | NUR ---
PT HAS CHAIR ALARM IN PLACE AND ON, IN RECLINER, HE VERBALIZED HE WILL CALL IF HE NEEDS ANYTHING, INCLUDING STANDING UP. PT HAD NO OTHER REQUESTS OTHER THAN TO HAVE A CUP OF ORANGE JUICE THIS WAS PROVIDED.
--- NOTE | 2021-12-13 20:45 | NUR ---
IN TO ASSIST PT WITH VOIDING, RT IN ROOM, PT TELLS THIS PUBLIC HEALTH TECHNICIAN HE IS READY FOR BED AFTER RT TREATMENT IS FINISHED, PT REMAINS IN THE CHAIR
--- NOTE | 2021-12-13 21:00 | NUR ---
PT ASSISTED FROM CHAIR TO THE BED, 1PA FWW, BED ALARM IS SET, NO FURTHER NEEDS AT THIS TIME
--- NOTE | 2021-12-13 23:54 | NUR ---
PT RESTING IN BED EYES CLOSED RR EVEN, LAYING SUPINE SLIGHTLY TO THE RIGHT SIDE, NO DISTRESS NOTED.
--- NOTE | 2021-12-13 23:58 | NUR ---
BED ALARM ON FOR PT SAFETY
--- NOTE | 2021-12-14 04:20 | NUR ---
BED ALARM SET OFF, PT GETTING OOB, NEEDS ASSISTANCE WITH VOIDING AT BEDSIDE, PT INCONT WITH ATTENDS, BED LINENS WET, PT EVENTULLALY ABLE TO STAND WITH WALKER, MOVED TO CHAIR, THEN ABLE TO VOID, TOOK A.M. VITALS, FRESH ICE WATER GIVEN, NO FURTHER NEEDS AT THIS TIME, CHAIR ALARM IN PLACE
--- NOTE | 2021-12-14 04:24 | NUR ---
PT UP TO RECLINER AFTER VOIDING AND HAVING INCONTINENCE IN BED, BREONNA BADILLOA ASSISTED, PT HAD SET OFF BED ALARM ATTEMPTING TO EXIT BED WITHOUT USING CALL LIGHT.
--- NOTE | 2021-12-14 05:29 | NUR ---
PT SLEPT WELL FOR SIX HOURS, HE HAS BEEN UP TO RECLINER TWICE OVER SHIFT, HE REQUIRES CHAIR ALARM AND BED ALARM WHEN IN BED. HE IS IMPLUSIVE AND FORGETS TO USE NURSES CALL LIGHT, HE EXITS CHAIR AND BED FREQUENTLY SETTING OFF ALARMS. HE HAS VOIDED QUANTITY SUFFICIENT. HE HAS HAD MULTIPLE SNACKS. HE IS S/L, ON ROOM AIR OVER SHIFT, HE HAS CALL LIGHT IN REACH, AND CHAIR ALARM ON.
--- NOTE | 2021-12-14 08:15 | NUR ---
REPORT RECEIVED FROM NIGHT RN AND PT. CARE RESUMED. PT. IS ALERT AND ORIENTED. HE DENIES PAIN. LEFT FOOT DRESSING HAS A HAS A SMALL AMOUNT OF DRIED SEROSANGUINOUS DRAINAGE ON THE GAUZE BUT IS OTHERWISE DRY AND INTACT. +1 EDEMA PRESENT BLE AND LEGS ELEVATED. MORNING MEDS ADMINISTERED. IV SITES WNL AND FLUSH WELL. LUNGS COARSE IN UPPER LOBES AND PT. HAS AN OCCASIONAL COUGH. DISCUSSED SAFETY, MEDS AND POC. PT. LEFT RESTING WITH CALL LIGHT IN REACH, BED ALARM ON, EATING BREAKFAST.
--- NOTE | 2021-12-14 09:50 | NUR ---
PT. ASSISTED WITH VOIDING IN CYLINDER. HE STATES "I NEED A PILL" WHEN ASKED FOR WHAT, HE STATES HE DOES NOT KNOW. PT. C/O FEELING SHORT OF BREATH WITH LYING DOWN. 02 SAT IS 89-90% ON R.A. RR IS 23. LUNGS COARSE IN UPPER LOBES. PT. ENCOURAGED TO COUGH AND USE I.S. ASSISTED WITH FWW TO THE CHAIR. LEFT RESTING WITH ALARM ON AND CALL LIGHT IN REACH. WILL CONTINUE TO MONITOR.
--- NOTE | 2021-12-14 11:03 | NUR ---
ROUNDING ON PT. HE IS SLEEPING IN THE CHAIR AND RR IS NORMAL. NASAL CANULA IN HIS NOSE, BUT NO O2 FLOWING, PER PT. REQUEST.
--- NOTE | 2021-12-14 12:02 | NUR ---
PT. USED CALL LIGHT APPROPRIATELY FOR ASSISTANCE TO VOID. STOOD WITH FWW BY HIMSELF AND VOIDED. DENIES FURTHER NEEDS. LEFT RESTING WITH ALARM ON AND CALL LIGHT IN REACH.
--- NOTE | 2021-12-14 13:55 | NUR ---
PT. USED CALL LIGHT APPROPRIATELY TO REQUEST ASSISTANCE WITH VOIDING. HE WAS ABLE TO STAND WITH SBA WITH FWW. PT. LEFT RESTING WITH CALL LIGHT IN REACH.
--- NOTE | 2021-12-14 15:16 | NUR ---
PT. ASSISTED WITH VOIDING. LEFT RESTING WITH CALL LIGHT IN REACH AND ALARM ON CHAIR.
--- NOTE | 2021-12-14 19:00 | NUR ---
SHIFT REPORT RECEIVED FROM DAYSHIFT RN NIRMAL AT BEDSIDE. pt AWAKE AND RESTING IN CHAIR, CHAIR ALARM ON FOR SAFETY AND CALL LIGHT IN REACH. SOME OLD DRAINAGE NOTED TO LEFT FOOT DRESSING, WILL MONITOR. NO NEEDS OR CONCERNS VERBALIZED.
--- NOTE | 2021-12-14 20:30 | NUR ---
ASSESSMENT COMPLETE, SCHEDULED MEDS GIVNE (SEE EMAR). NICOTINE PATCH ALSO REMOVED. MEDS GIVEN WITHOUT ISSUE. pt RESTING IN BED WITH BED ALARM ON FOR SAFETY. pt DENIES PAIN AND NAUSEA, BOWEL TONES ACTIVE. EVENING SNACK PROVIDED. IV SITES X2 WNL, BRISK BLOOD RETURN NOTED TO LEFT HAND IV SITE. BOTH CURRENTLY SALINE LOCKED. pt A/O TO ALL BUT DATE, REORIENTED. VSS AND I&O'S COMPLETE AND CHARTED. NO CHANGES TO LEFT FOOT DRESSING, WILL CONTINUE TO MONITOR. pt REPORTS BASELINE NUMBNESS AND TINGLING IN BILATERAL HANDS AND FEET-CHRONIC. STRONG BILATERAL PEDAL PULSES, CAP REFILL APPROX 3 SECONDS. NO FURTHER NEEDS OR CONCERNS. CALL LIGHT IN REACH.
--- NOTE | 2021-12-14 20:43 | NUR ---
CALL LIGHT ANSWERED, pt ASSISTED WITH USE OF URINAL. 550 MLS LIGHT YELLOW URINE NOTED. NO FURTHER NEEDS. CALL LIGHT REMAINS IN REACH AND BED ALARM REMAINS ON FOR SAFETY.
--- NOTE | 2021-12-14 22:15 | NUR ---
pt heard coughing from rn station, in room to round and assess. pt reports sob, pt boosted in bed and hob elevated for comfort, spo2 86-88% on ra. pt placed on 1.75-2lnc, spo2 now maintaining 91-92%. pt educted on use of IS, deep breathing, and other interventions. pt verbalized understanding. rt judy made aware. bed alarm resumed, no further needs. call light in reach.
--- NOTE | 2021-12-15 00:48 | NUR ---
pt RESTING IN BED, RR EVEN AND UNLABORED. 2LNC REMAINS IN PLACE. SPO2 91%, HR 68. BED ALARM REMAINS ON AND CALL LIGHT IN REACH.
--- NOTE | 2021-12-15 01:16 | NUR ---
BED ALARM GOING OFF, ASSISTED pt WITH USE OF URINAL. 350MLS OUTPUT NOTED. pt ABLE TO STAND AT EDGE OF BED AND REPOSITION SELF WITH MINIMAL ASSIST FROM SAFE AND VAULT MECHANIC. BED ALARM RESUMED. CALL LIGHT IN REACH. BLE REMAINS ELEVATED IN BED WITH PILLOW.
--- NOTE | 2021-12-15 01:55 | NUR ---
CALL LIGHT ANSWERED, pt REPORTS 5/10 PAIN IN BACK, RESOLVED WITH ASSISTANCE WITH REPOSTIONING IN BACK. BED ALARM REMAINS ON FOR SAFETY. ASSESSMENT COMPLETE, NO ACUTE CHANGES. BLE REMAINS ELEVATED IN BED. CALL LIGHT IN REACH. 2LNC REMAINS IN PLACE.
--- NOTE | 2021-12-15 05:08 | NUR ---
ROUNDED ON pt, pt AWAKE AND SLID DOWN IN BED. pt BOOSTED AND BED ALARM REMAINS ON FOR SAFETY. pt REPORTS HE'S AT HIS FRIEND'S HOUSE, REORIENTED TO PLACE AND DATE/TIME. URINAL EMPITED, VSS AND I&O'S COMPLETE. NO FURTHER NEEDS, CALL LIGHT IN REACH.
--- NOTE | 2021-12-15 06:55 | NUR ---
rounded on pt, 2lnc off of face, spot checked on ra, spo2 mid 80's. 2lnc replaced and now maintaining 91-92%. bed alarm remains on for safety and call light in reach. no further needs. rr even and unlabored.
--- NOTE | 2021-12-15 07:30 | NUR ---
PATIENT RESTING QUIETLY IN SEMIFOWLERS POSITION, EYES CLOSED, RESPIRATIONS ARE REGULAR AND EVEN, BED ALARM IS ON, AND CALL LIGHT IS IN REACH. PATIENT HAS NO CURRENT CARE NEEDS AT THIS TIME. SHIFT REPORT GIVEN TO THIS RN BY LAILA MURRAY.
--- NOTE | 2021-12-15 07:40 | NUR ---
patient is in bed resting, says he will get up for breakfast when it comes. call light with in reach. no further needs at this time.
--- NOTE | 2021-12-15 10:04 | NUR ---
PATIENT UP IN BEDSIDE ARMCHAIR WHEN THIS RN CAME IN. PATIENT ASLEEP IN CHAIR AND HAS EATEN 100% OF HIS BREAKFAST AND DRANK ALL HIS FLUIDS. NEW ICE WATER GIVEN AND URINAL EMPTIED. PATIENT TOOK ALL HIS AM MEDS WITHOUT DIFFICULTY AND IS ORIENTED TO SELF AND PLACE, JUST NOT DATE AND TIME. DRESSING TO LEFT FOOT CHANGED BY THIS RN. BROWN DRY DRAINAGE NOTED IN DRESSING, BUT THE IODOSORB THAT HAS BEEN BEING PLACED IS BROWN. WOUND CLEANSED WITH SALIN AND IT IS NICE AND PINK, NO REDNESS OR SWELLING. IODOSORB APPLIED, 4X4 GAUZE OVER THAT, WRAPPED IN KERLIX, AND WRAPPED AGAIN IN COBAN. PULSES TO BOTH FEET PALPABLE AND STRONG AND CAP REFILL TO ALL TOES AND FINGERS LESS THAN 3 SECONDS. CALL LIGHT IS IN REACH. AM ASSESSMENT COMPLETE. PATIENT IN BEDSIDE ARMCHAIR WITH CHAIR ALARM ON.
--- NOTE | 2021-12-15 10:55 | NUR ---
THIS RN 1PSBA AND FWW PATIENT BACK TO BED AT HIS REQUEST. PATIENT SAYS HE JUST WANTS TO TAKE A NAP. BED ALARM ON FOR SAFETY AND CALL LIGHT IS IN REACH. PATIENT DENIES ANY CARE NEEDS AT THIS TIME.
--- NOTE | 2021-12-15 11:31 | NUR ---
PATIENT DUE FOR IV ROTATION. THIS RN DISCUSSED THIS WITH AND VERBAL ORDER GIVEN TO TAKE OUT IV AND LEAVE IT OUT. NURSE NOTIFY WRITTEN AND IV DC'D INTACT. CALL LIGHT IN REACH.
--- NOTE | 2021-12-15 12:34 | NUR ---
THIS RN IN TO STANDBY ASSIST PATIENT TO THE BED SIDE ARMCHAIR WITH FWW. PATIENT TOLERATED THIS WELL. CHAIR ALARM IS ON AND PATIENT'S LUNCH IS SET UP SO HE CAN EAT. 1300 MEDS GIVEN. CALL LIGHT IS IN REACH.
--- NOTE | 2021-12-15 14:23 | NUR ---
THIS RN HELPED PATIENT OT THE BEDSIDE COMMODE. CHRISTINA HOLBROOK IN ROOM TO HELP PATIENT FINISH UP USING THE COMMODE.
--- NOTE | 2021-12-15 16:45 | NUR ---
THIS RN IN TO SEE PATIENT. RT GIVING A NEB AT THIS TIME. PO LACTULOSE GIVEN. PATIENT HAS NO NEEDS FROM THIS RN AT THIS TIME. CALL LIGHT AT THIS TIME.
--- NOTE | 2021-12-15 18:13 | NUR ---
PATIENT PM ASSESSMENT COMPLETE. PATIENT SITTING UP IN THE BEDSIDE ARMCHAIR AND PATIENT ATE A HUGE DINNER AND IS EATING A BUNCH OF SNACKS BROUGHT UP BY DIETERY. PATIENT DRINK LOTS OF PO FLUIDS WELL. URINE HAS BEEN QUANTITY SUFFICEINT THROUGH THE SHIFT. CALL LIGHT IS IN REACH AND PATIENT HAS NO CURRENT CARE NEEDS AND CALL LIGHT IS IN REACH.
--- NOTE | 2021-12-15 19:57 | NUR ---
RECIEVED REPORT FROM DAY SHIFT RN. PATIENT IS RESTING IN RECLINER. NO NEEDS NOTED. CALL LIGHT IN REACH.
--- NOTE | 2021-12-15 20:20 | NUR ---
PATIENT ASSEMENT COMPLETED. PATIENTS VITALS TAKEN AND RECORDED. INTAKE AND OUTPUT RECORDED. SCHEDULED MEDICATIONS GIVEN PER ORDER. PATIENT DENIES ANY PAIN. PATIENT REMAINS ON 2L VIA NC. PATIENT ASSISTED TO THE BED FROM THE RECLINER A SBA W/FWW. PATIENT IS RESTING IN BED. FRESH ICE WATER PROVIDED. PATIENT DENIES ANY FURTHER NEEDS. CALL LIGHT IN REACH. BED ALARM ON FOR SAFETY.
--- NOTE | 2021-12-15 20:24 | NUR ---
EMPTIED URINAL/CYLINDER TWICE EARLIER. V/S AND I&O'S DONE AND RECORDED BY PRIMARY LAILA BALL. BED LINEN CHANGED AND GOWN. WET WASH CLOTH PROVIDED. LAILA BALL WAS WITH PATIENT.
--- NOTE | 2021-12-15 23:25 | NUR ---
PATIENT TRIED TO USE THE URINAL SITTING AT THE EDGE OF THE BED. NOTHING ON THE URINAL. URINE ON THE FLOOR. GOWN ON THE FLOOR. THIS PASTER OPERATOR WIPED THE FLOOR WITH WAGNER WIPES AND DRIED. PATIENT REFUSED TO HAVE GOWN STATED HE IS HOT. BED ALARM ON FOR SAFETY. CALL LIGHT WITHIN REACH. DENIES FURTHER CARE OR NEEDS AT THIS TIME.
--- NOTE | 2021-12-16 00:44 | NUR ---
PATIENT IS RESTING IN BED WATHCING TV. PATIENT DENIES ANY NEEDS. CALL LIGHT IN REACH. BED ALARM ON FOR SAFETY.
--- NOTE | 2021-12-16 01:16 | NUR ---
PATIENTS BED ALARM ALERTED STAFF. WHEN ROOM WAS ENTERED PATIENT WAS FOUND TO BE SITTING ON THE FLOOR. THIS RN ASKED PATIENT IF HE WAS HURT. PATIENT STATED "I AM OK." WHEN THIS RN INQUIRED ABOUT HOW PATIENT ENDED UP ON FLOOR PATIENT STATED "I SCOOTED TO THE END OF THE BED TO PEE I GRABBED THAT TABLE, IT LOOKED STURDY." PATIENT ABLE TO GET ON KNEES AND GET OFF FLOOR AND BACK TO BED WITH MINIMAL ASSISTANCE. PATIENTS LEFT KNEE IS BLEEDING AND APPEARS TO BE SCARTCHED, BANDAIAD PLACED ON LEFT KNEE. PATIENTS LEFT HIP ALSO HAS A SCRATCH. PATIENT STATED "I SCRATCHED MY HIP WITH MY NAILS." BANDAID PLACED ON LEFT HIP. PATIENT DENIES ANY PAIN. PATIENTS BED ALARM PLACED ON MOST SENTISTIVE SETTING. FALL MAT PLACED ON PATIENTS FLOOR NEXT TO THE BED. PATIENTS CALL LIGHT IN REACH. VITALS TAKEN AND RECORDED. PLACED CALL TO MD, NO NEW ORDERS AT THIS TIME.
--- NOTE | 2021-12-16 02:31 | NUR ---
PATIENT IS RESTING IN BED WITH EYES CLOSED, RR 18. CALL LIGHT IN REACH. BED ALARM ON FOR SAFETY.
--- NOTE | 2021-12-16 03:20 | NUR ---
CALL LIGHT ON. LOCATION ANALYST NAHUM AND THIS SKEET OPERATOR HELPED PATIENT BOOST UP IN BED. BED ALARM ON FOR SAFETY. NO OTHER NEEDS AT THIS TIME.
--- NOTE | 2021-12-16 04:04 | NUR ---
PATIENT IS RESTING IN BED WITH EYES CLOSED, RR 16. CALL LIGHT IN REACH. BED ALARM ON FOR SAFETY.
--- NOTE | 2021-12-16 04:38 | NUR ---
PATIENTS VITALS TAKEN AND RECORDED. PATIENT SAT ON BED AND USED URINAL. INTAKE AND OUTPUT RECORDED. PATIENT ASSISTED TO THE RECLINER A SBA. PATIENT REMAINS ON 2L VIA NC. PATIENT IS UP RESTING IN RECLINER. CHAIR ALARM ON FOR SAFETY. CALL LIGHT AND BELONGINGS ARE WITHIN REACH. NO FURTHER NEEDS NOTED.
--- NOTE | 2021-12-16 06:07 | NUR ---
PATIENT IS RESTING IN RECLINER WATCHING TV. PATIENT DENIES ANY NEEDS. CALL LIGHT IN REACH. CHAIR ALARM ON FOR SAFETY.
--- NOTE | 2021-12-16 07:30 | NUR ---
THIS RN RECEIVED SHIFT REPORT FROM LAILA BALL. PATIENT RESTING QUIETLY IN BED IN SEMIFOWLERS POSITION, EYES CLOSED, RESPIRATIONS REGULAR AND EVEN, CALL LIGHT IS IN REACH. PATIENT REMAINS ON 2L/NC. PATIENT HAS NO CURRENT CARE NEEDS AT THIS TIME. BED ALARM IS ON.
--- NOTE | 2021-12-16 08:41 | NUR ---
PATIENT UP TO BATHROOM THEN TO CHAIR FOR BREAKFAST, 1PA FWW. VITALS CHARTED. CALL LIGHT IN REACH. NO FURTHER NEEDS AT THIS TIME.
--- NOTE | 2021-12-16 08:43 | NUR ---
ES JUST MOPPED PATIENT'S ROOM HE VOIDED FROM HIS CHAIR CLEAR INTO THE BATHROOM ON THE FLOOR. PATIENT UP IN THE BEDSIDE ARMCHAIR EATING BREAKFAST. AM MEDS GIVEN EXCEPT PROPRANOLOL WAS HELD FOR HR IN THE 50'S AND B/P WAS NOT ELEVATED. PATIENT DENIES PAIN. LEFT FOOT DRESSING DRY AND INTACT. LUNGS ARE CLEAR BUT DIM. PATIENET'S CALL LIGHT IS IN REACH AND BED ALARM IS ON. PATIENT'S ICE WATER REFILLED.
--- NOTE | 2021-12-16 09:14 | NUR ---
PATIENT BACK TO BED FROM CHAIR, 1PA FWW. BED ALARM ON. I&O'S CHARTED. WARM BLANKET GIVEN. CALL LIGHT IN REACH. NO FURTHER NEEDS AT THIS TIME.
--- NOTE | 2021-12-16 10:07 | NUR ---
PATIENT BACK IN BED NOW SUPINE WITH EYES CLOSED, RESPIRATIONS ARE REGULAR AND EVEN, BED ALARM IS ON AND CALL LIGHT IS IN REACH. PATIENT HAS NO NOTED CARE NEEDS AT THIS TIME.
--- NOTE | 2021-12-16 10:48 | NUR ---
THIS RN IN TO SEE PATIENT. PATIENT STILL RESTING QUIETLY SUPINE, EYES CLOSED, RESPIRATIONS ARE REGULAR AND EVEN, CALL LIGHT IN REACH AND BED ALARM IS ON. PATIENT HAS NO CARE NEEDS AT THIS TIME.
[2021-12-16] MEDS ORDERED: NICOTINE1 EAC2 TD (12:01)
[2021-12-16] MEDS ORDERED: XIFAXAN550 MG PO (12:01)
[2021-12-16] MEDS ORDERED: PROAIR HFA8.5 GM INH (12:02)
[2021-12-16] MEDS ORDERED: INDERAL XL80 MG PO (12:03)
[2021-12-16] MEDS ORDERED: GABAPENTIN300 MG PO (12:04)
[2021-12-16] MEDS ORDERED: LEVETIRACETAM750 MG PO (12:05)
[2021-12-16] MEDS ORDERED: DULOXETINE HCL60 MG PO (12:05)
[2021-12-16] MEDS ORDERED: OLANZAPINE10 MG PO (12:05)
[2021-12-16] MEDS ORDERED: LACTULOSE10 GM/15 M PO (12:10)
[2021-12-16] MEDS ORDERED: FLOVENT HFA12 GM INH (12:10)
[2021-12-16] MEDS ORDERED: VITAMIN D325 MCG PO (12:11)
[2021-12-16] MEDS ORDERED: OLANZAPINE5 MG PO (12:37)
--- NOTE | 2021-12-16 12:38 | NUR ---
MED REC COMPLETE
--- NOTE | 2021-12-16 14:21 | NUR ---
PT ALERT, ORIENTED AND SITTING IN CHAIR. PT SEEMED PLEASED WITH VISIT, SHARED WITH ME HE HOPES TO DC TODAY, BUT WAS APPREHENSIVE. PT SHARED THAT HE HAS AN ADDICTION PROBLEM AND WAS AFRAID OF RELAPSE. SHARED RESOURCES, SAID HE WAS TO ATTEND NA, AND VISIT WITH CM REGARDING OTHER OPTIONS. GAVE ENCOURAGEMENT AND BLESSING. WILL FOLLOW NEEDED
--- NOTE | 2021-12-16 15:05 | NUR ---
THIS RN IN TO ASSIST PATIENT WITH DRESSING. NEW ATTENDS PLACED ON PATIENT AFTER HE VOIDED PER URINAL. PATIENT SIGNED FOR HIS DC INSTRUCTIONS. THIS RN WENT OVER PATIENT PCP F/U APPT, APPT WITH FOR HIS FOOT, AND APPOINTMENTS WITH DAY SURGERY FOR DRESSING CHANGES. PATIENT VERBALIZED UNDERSTANDING TO ALL. THIS RN INFORMED PATIENT HE NEEDED TO MAKE THE TRANSPORTATION CALL 1 DAY BEFORE EACH VISIT TO SET IT UP. PATIENT SAID,"I AM VERY FAMILIAR WITH HOW TO USE MEDICAL TRANSPORTATION, YOU DON'T NEED TO TELL ME". PATIENT'S DRESSING TO HIS LEFT FOOT IS C/D/I AT THIS TIME. MEDICAL WHEELCHAIR TRANSPORT ARRIVING TO TAKE PATIENT [place]VER HE WANTS TO [place]. ALL PATIENT'S BELONGINGS AND 10 EXTRA ATTENDS PACKED WITH PATIENT WELL A VERY LARGE BAG OF FOOD THE PATIENT HAS BEEN COLLECTING. PATIENT WAS ORIGINALLY GOING TO THE [facility], BUT TELLS THIS RN NOW THAT HE IS GOING TO HAVE THE TRANSPORT DROP HIM AT "[facility]" TO GET CIGARETTES AND THAT IS IS CLOSE TO HIS FRIENDS PLACE. PATIENT HAS BEEN OFF OF HIS 02 FOR AN HOUR AND O2 SATS ARE 93% ON RA AT THIS TIME. OTHER VS ARE STABLE. Rx FOR FWW WITH PATIENT'S DC INSTRUCTIONS AND PAPERWORK AND HE HAS VERBALIZED UNDERSTANDING OF ALL F/U AND DC INSTRUCTIONS. PATIENT TAKEN OUT TO WHEELCHAIR VAN BY THIS RN AND SOLIS CONDUIT BENDER. WHEELCHAIR VAN DEPARTED WITH PATIENT.
== END 2021-12-16 15:05 | disposition home or self-care (01) | DRG 177 ==
LOC: ED 16:52 → CCU 12-10 01:38 → MS 12-11 13:46
PROVIDERS: ADMIT Internal Medicine; ATTEND Internal Medicine
DX: J15.0 Pneumonia due to Klebsiella pneumoniae (principal); J96.21 Acute and chronic respiratory failure with hypoxia; J44.1 Chronic obstructive pulmonary disease with (acute) exacerbation; J44.0 Chronic obstructive pulmonary disease with (acute) lower respiratory infection; R45.851 Suicidal ideations; Z20.822 Contact with and (suspected) exposure to COVID-19; E87.6 Hypokalemia; R29.6 Repeated falls; F20.9 Schizophrenia, unspecified; G40.909 Epilepsy, unspecified, not intractable, without status epilepticus; K70.30 Alcoholic cirrhosis of liver without ascites; G62.9 Polyneuropathy, unspecified; S81.802A Unspecified open wound, left lower leg, initial encounter; E55.9 Vitamin D deficiency, unspecified; I10 Essential (primary) hypertension; Z59.00 Homelessness unspecified; K21.9 Gastro-esophageal reflux disease without esophagitis; F41.9 Anxiety disorder, unspecified; F17.210 Nicotine dependence, cigarettes, uncomplicated; Z88.1 Allergy status to other antibiotic agents; Z88.2 Allergy status to sulfonamides; Z79.899 Other long term (current) drug therapy; W18.39XA Other fall on same level, initial encounter
CPT/HCPCS: 36415; 70450; 71046; 71260; 73630; 80048; 80053; 80503; 82140; 82306; 82803; 83735; 83880; 84484; 85025; 85379; 85651; 86140; 87070; 87075; 87186; 87205; 93005; 93010; 94640; 94667; 94668; 94760; 97110; 97116; 97162; 97166; 97530; 99285-25; G0480; J0456; J0696; J1650; J3480; J7060; J7512; Q9967; U0003

== ENCOUNTER 2021-12-16 23:56 | Emergency (ER) | payer MEDICARE, OTHER ==
[~2021-12-16] VITALS: Ht 182.9 cm; Wt 105.7 kg
[~2021-12-16 23:56] MED LIST changes: +AMLODIPINE BESYL5 MG PO; +DULOXETINE HCL60 MG PO; +FLOVENT HFA12 GM INH; +GABAPENTIN100 MG PO; +GABAPENTIN300 MG PO; +INDERAL XL80 MG PO; +LEVETIRACETAM750 MG PO; +NICOTINE1 EAC2 TD; +OLANZAPINE5 MG PO; +PROAIR HFA8.5 GM INH; +VITAMIN D325 MCG PO; +XIFAXAN550 MG PO
--- OUTSIDE RECORDS SUMMARY | 2021-12-16 23:58 | XMS ---
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 Care History Medical/Surgical 12/09/2021 [facility] Patient provided with [facility] number for detox. PCP Dr. Nguyen will no longer be able to treat this patient as he is needing more in person care and is non compliant with provider instructions. Waiting for response from Dr. Lauren to determine if he will take this patient. 12/04/2021 [facility] Patient came into ED after Clinic hours. Patient has a televisit with PCP Dr. Nguyen today, 12/04/2021 at 3:40 pm. 12/03/2021 [facility] -PATIENT HAS AN APT WITH DR NGUYEN TO ESTABLISH CARE ON 10/09/20. - Patient is currently established with [facility]. If patient is seen in the ED during business hours. Please contact CHWs at [facility]. Care Recommendation: If this patient has [...] COUNT (12 MO.) 1 Joshua Jimenez 2 [facility] 3 [facility] 1 [facility] 1 [place] 8 [facility]. TOTAL 16 NOTE: Visits indicate total known visits. ED/UCC VISIT TRACKING (12 MO.) 12/16/2021 23:[address] [facility] [place] TYPE: Emergency COMPLAINT: - MEDICAL CLEARANCE 12/09/2021 16:53 [facility] [place] TYPE: Emergency COMPLAINT: - POSS SEIZURE 12/06/2021 17:20 [facility] [place] TYPE: Emergency COMPLAINT: - ABD PAIN DIAGNOSES: - Allergy status to sulfonamides - Gastro-esophageal reflux disease without esophagitis - Atelectasis - Unspecified convulsions - Osteomyelitis, unspecified - Other long term care pharmacist (current) drug therapy - Unspecified cirrhosis of liver - Nicotine dependence, unspecified, uncomplicated - Constipation, unspecified - Unspecified abdominal pain 12/02/2021 20:28 [facility] [place] TYPE: Emergency COMPLAINT: - LEFT SIDE WEAKNESS DIAGNOSES: - Osteomyelitis, unspecified - Nicotine dependence, unspecified, uncomplicated - Allergy status to sulfonamides - Gastro-esophageal reflux disease without esophagitis - Allergy status to other antibiotic agents - Weakness - Cellulitis of left lower limb - Other shelter (current) drug therapy 11/20/2021 17:42 [facility] [place] TYPE: Emergency COMPLAINT: - WOUND CHECK DIAGNOSES: - Striking against or struck by other objects, initial encounter - Other long term care pharmacist (current) drug therapy - Anxiety disorder, unspecified [...] TYPE: Emergency DIAGNOSES: - Hypokalemia - SOB; [place] - Hypoxemia - Other specified abnormal findings of blood chemistry - Other acute pancreatitis without necrosis or infection 10/25/2021 10:02 [facility] [place] TYPE: Psychiatric Emergency DIAGNOSES: - Adjustment disorder with depressed mood - [facility] 10/18/2021 10:02 [facility] [place] TYPE: Emergency COMPLAINT: - COVID-19 DIAGNOSES: 1. COVID-19 2. Encounter for other administrative examinations 3. Nicotine dependence, cigarettes, uncomplicated 08/31/2021 17:49 [facility] [place] TYPE: Emergency COMPLAINT: - SEPSIS, ACUTE RESPIRATORY FAILURE WITH HYPOXIA DIAGNOSES: 0. Acute respiratory failure with hypoxia 0. Sepsis, unspecified organism 08/08/2021 18:43 [facility] [place] TYPE: Emergency DIAGNOSES: - HOMELESSNESS UNSPECIFIED - COUGH, UNSPECIFIED 08/01/2021 01:08 [facility] TYPE: Emergency DIAGNOSES: 14747. Acute upper respiratory infection, unspecified 07/31/2021 17:45 [facility] TYPE: Emergency DIAGNOSES: 22101. SOB; Cough; [place]; Chills 07/18/2021 21:58 [facility] TYPE: Emergency DIAGNOSES: 64142. Fall out of WC onto face 56914. Spinal stenosis, cervical region 71516. Fall from non-moving wheelchair, initial encounter 52220. Alcohol abuse, uncomplicated 89207. Paresthesia of skin 07/18/2021 11:[address] [facility] TYPE: Emergency COMPLAINT: - NEK PAIN DIAGNOSES: - Allergy status to other antibiotic agents - Other fall from one level to another, initial encounter - Nicotine dependence, unspecified, uncomplicated - Allergy status to sulfonamides - Sprain of ligaments of cervical spine, initial encounter - Gastro-esophageal reflux disease without esophagitis - Other long term care pharmacist (current) drug therapy - Radiculopathy, cervical region [...] - Nicotine dependence, unspecified, uncomplicated - Other shelter (current) drug therapy 07/05/2021 19:22 [facility] [place] TYPE: Emergency COMPLAINT: - INTOXICATION DIAGNOSES: - Other long term care pharmacist (current) drug therapy - Blood alcohol level [...] intoxication, unspecified INPATIENT VISIT TRACKING (12 MO.) 12/10/2021 01:38 [facility] [place] TYPE: Medical Surgical COMPLAINT: - PNEUMONIA, AFLUTTER, HYPO K+, SI 10/25/2021 22:22 [facility] [place] TYPE: Medical Surgical DIAGNOSES: - Acute respiratory failure with hypoxia - Hypokalemia - Other acute pancreatitis without necrosis or infection - Local infection of the skin and subcutaneous tissue, unspecified - Other specified abnormal findings of blood chemistry - COVID-19 - Other acute osteomyelitis, left ankle and foot - Hypoxemia 08/31/2021 17:49 [facility] [place] TYPE: Medical Surgical COMPLAINT: - SEPSIS, [...] 36. Encounter for immunization 07/18/2021 21:58 [facility] TYPE: General Medicine DIAGNOSES: . Paresthesia of skin . Alcoholic cirrhosis of liver without ascites . Spinal stenosis, cervical region . Fall from non-moving wheelchair, initial encounter . Alcohol abuse, uncomplicated [email or web address]
== END 2021-12-17 15:35 | disposition home or self-care (01) ==
LOC: ED 23:56
DX: R45.851 Suicidal ideations (principal); F20.9 Schizophrenia, unspecified; K21.9 Gastro-esophageal reflux disease without esophagitis; M86.9 Osteomyelitis, unspecified; F17.200 Nicotine dependence, unspecified, uncomplicated; Z88.2 Allergy status to sulfonamides; Z88.8 Allergy status to other drugs, medicaments and biological substances; Z79.899 Other long term (current) drug therapy; Z79.51 Long term (current) use of inhaled steroids; Z20.822 Contact with and (suspected) exposure to COVID-19
CPT/HCPCS: 36415; 71045; 80053; 80503; 81001; 83880; 84443; 85025; 94640; 99285-25; A9270; C9803; G0480; U0003

== ENCOUNTER 2021-12-22 | Emergency (ER) | payer MEDICARE, OTHER ==
[~2021-12-22] VITALS: Ht 182.9 cm; Wt 105.7 kg
--- OUTSIDE RECORDS SUMMARY | 2021-12-22 00:04 | XMS ---
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 Care History Medical/Surgical 12/17/2021 [facility] *MINA GOYAL FROM [facility] IS GOING TO GET A CHW INVOLVED WITH PATIENT. THEY ARE CURRENTLY WITH HIM AND MONITORING PATIENT. IF PATIENT NEEDS A SLEEPING BAG AND OR A TENT PLEASE CONTACT SAM IN CASE MANAGEMENT- [phone]. 12/09/2021 [facility] Patient provided with [facility] number for detox. PCP Dr. Nguyen will no longer be able to treat this patient as he is needing more in person care and is non compliant with provider instructions. Waiting for response from Dr. Lauren to determine if he will take this patient. 12/04/2021 [facility] Patient came into ED after Clinic hours. Patient has a televisit with PCP Dr. Nguyen today, 12/04/2021 at 3:40 pm. E.D. VISIT COUNT (12 MO.) 1 Joshua Jimenez 2 [facility] [address] 1 [place] 9 [facility] TOTAL 17 NOTE: Visits indicate total known visits. 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 - Other intermediate frame tender (current) drug therapy - Allergy status to other drugs, medicaments and biological substances 12/09/2021 16:53 [facility] [place] TYPE: Emergency COMPLAINT: - POSS SEIZURE 12/06/2021 17:20 [facility] [place] TYPE: Emergency COMPLAINT: - ABD PAIN DIAGNOSES: - Allergy status to sulfonamides - Gastro-esophageal reflux disease without esophagitis - Atelectasis - Unspecified convulsions - Osteomyelitis, unspecified - Other longterm (current) drug therapy - Unspecified cirrhosis of liver - Nicotine dependence, unspecified, uncomplicated - Constipation, unspecified - Unspecified abdominal pain 12/02/2021 20:28 [facility] [place] TYPE: Emergency COMPLAINT: - LEFT SIDE WEAKNESS DIAGNOSES: - Osteomyelitis, unspecified - Nicotine dependence, unspecified, uncomplicated - Allergy status to sulfonamides - Gastro-esophageal reflux disease without esophagitis - Allergy status to other antibiotic agents - Weakness - Cellulitis of left lower limb - Other longterm (current) drug therapy 11/20/2021 17:42 [facility] [place] TYPE: Emergency COMPLAINT: - WOUND CHECK DIAGNOSES: - Striking against or struck by other objects, initial encounter - Other longterm (current) drug therapy - Anxiety disorder, unspecified [...] TYPE: Emergency DIAGNOSES: - Hypokalemia - SOB; [place] - Hypoxemia - Other specified abnormal findings of blood chemistry - Other acute pancreatitis without necrosis or infection 10/25/2021 10:02 [facility] [place] TYPE: Psychiatric Emergency DIAGNOSES: - Adjustment disorder with depressed mood - [facility] 10/18/2021 10:02 [facility] [place] TYPE: Emergency COMPLAINT: - COVID-19 DIAGNOSES: 1. COVID-19 2. Encounter for other administrative examinations 3. Nicotine dependence, cigarettes, uncomplicated 08/31/2021 17:49 [facility] [place] TYPE: Emergency COMPLAINT: - SEPSIS, ACUTE RESPIRATORY FAILURE WITH HYPOXIA DIAGNOSES: 0. Acute respiratory failure with hypoxia 0. Sepsis, unspecified organism 08/08/2021 18:43 [facility] [place] TYPE: Emergency DIAGNOSES: - HOMELESSNESS UNSPECIFIED - COUGH, UNSPECIFIED 08/01/2021 01:08 [facility] TYPE: Emergency DIAGNOSES: 67378. Acute upper respiratory infection, unspecified 07/31/2021 17:45 [facility] TYPE: Emergency DIAGNOSES: 42894. SOB; Cough; [place]; Chills 07/18/2021 21:58 [facility] TYPE: Emergency DIAGNOSES: 74131. Fall out of WC onto face . Spinal stenosis, cervical region . Fall from non-moving wheelchair, initial encounter 34322. Alcohol abuse, uncomplicated 55635. Paresthesia of skin 07/18/2021 11:30 [facility] [place] TYPE: Emergency COMPLAINT: - NEK PAIN DIAGNOSES: - Allergy status to other antibiotic agents - Other fall from one level to another, initial encounter - Nicotine dependence, unspecified, uncomplicated - Allergy status to sulfonamides - Sprain of ligaments of cervical spine, initial encounter - Gastro-esophageal reflux disease without esophagitis - Other intermediate frame tender (current) drug therapy - Radiculopathy, cervical region [...] - Nicotine dependence, unspecified, uncomplicated - Other longterm (current) drug therapy 07/05/2021 19:22 [facility] [place] TYPE: Emergency COMPLAINT: - INTOXICATION DIAGNOSES: - Other longterm (current) drug therapy - Blood alcohol level [...] INPATIENT VISIT TRACKING (12 MO.) 12/10/2021 01:[address] [facility] [place] TYPE: Medical Surgical COMPLAINT: - PNEUMONIA, AFLUTTER, HYPO K+, SI DIAGNOSES: - Nicotine dependence, cigarettes, uncomplicated - Repeated falls - Alcoholic cirrhosis of liver without ascites - Acute and chronic respiratory failure with hypoxia - Polyneuropathy, unspecified - Pneumonia due to Klebsiella pneumoniae - HOMELESSNESS UNSPECIFIED - Schizophrenia, unspecified - Allergy status to other antibiotic agents - Pneumonia due to other Gram-negative bacteria - Other intermediate frame tender (current) drug therapy - HOMELESSNESS UNSPECIFIED - Suicidal ideations - Schizophrenia, unspecified - Epilepsy, unspecified, not intractable, without status epilepticus - Hypokalemia - Anxiety disorder, unspecified - Other fall on same level, initial encounter - Vitamin D deficiency, unspecified - Vitamin D deficiency, unspecified - Allergy status to sulfonamides - Klebsiella pneumoniae [K. pneumoniae] as the cause of diseases classified elsewhere - Essential (primary) hypertension - Hypokalemia - Chronic obstructive pulmonary disease with (acute) lower respiratory infection - Chronic obstructive pulmonary disease with (acute) exacerbation - Chronic obstructive pulmonary disease with (acute) exacerbation - Essential (primary) hypertension - Chronic obstructive pulmonary disease with (acute) lower respiratory infection - Alcoholic cirrhosis of liver without ascites - Gastro-esophageal reflux disease without esophagitis - Repeated falls - Epilepsy, unspecified, not intractable, without status epilepticus - Unspecified open wound, left lower leg, initial encounter - Suicidal ideations - Polyneuropathy, unspecified [facility]21 [facility] [place] [facility] DIAGNOSES: - Acute respiratory failure with hypoxia - Hypokalemia - Other acute pancreatitis without necrosis or infection - Local infection of the skin and subcutaneous tissue, unspecified - Other specified abnormal findings of blood chemistry - COVID-19 - Other acute osteomyelitis, left ankle and foot - Hypoxemia 08/31/2021 17:49 [facility] [place] TYPE: Medical Surgical COMPLAINT: - SEPSIS, [...] unspecified 36. Encounter for immunization 07/18/2021 21:58 [facility] TYPE: General Medicine DIAGNOSES: . Paresthesia of skin . Alcoholic cirrhosis of liver without ascites . Spinal stenosis, cervical region . Fall from non-moving wheelchair, initial encounter 02058. Alcohol abuse, uncomplicated [email or web address]
== END 2021-12-22 00:42 | disposition home or self-care (01) ==
LOC: ED
DX: S91.302A Unspecified open wound, left foot, initial encounter (principal); X58.XXXA Exposure to other specified factors, initial encounter; K21.9 Gastro-esophageal reflux disease without esophagitis; F17.200 Nicotine dependence, unspecified, uncomplicated; Z88.2 Allergy status to sulfonamides; Z88.1 Allergy status to other antibiotic agents; Z79.899 Other long term (current) drug therapy
CPT/HCPCS: 99283

== ENCOUNTER 2021-12-27 13:54 | Emergency (ER) | payer MEDICARE, OTHER ==
[~2021-12-27] VITALS: Ht 182.9 cm; Wt 105.7 kg
--- OUTSIDE RECORDS SUMMARY | 2021-12-27 13:59 | XMS ---
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 Care History Medical/Surgical 12/17/2021 [facility] *MINA GOYAL FROM [facility] IS GOING TO GET A CHW INVOLVED WITH PATIENT. THEY ARE CURRENTLY WITH HIM AND MONITORING PATIENT. IF PATIENT NEEDS A SLEEPING BAG AND OR A TENT PLEASE CONTACT SAM IN CASE MANAGEMENT- [phone]. 12/09/2021 [facility] Patient provided with [facility]ARLA number for detox. PCP Dr. Warner will no longer be able to treat this patient as he is needing more in person care and is non compliant with provider instructions. Waiting for response from Dr. Lauren to determine if he will take this patient. 12/04/2021 [facility] Patient came into ED after Clinic hours. Patient has a televisit with PCP Dr. Warner today, 12/04/2021 at 3:40 pm. E.D. VISIT COUNT (12 MO.) 1 Joshua Jimenez 2 [facility] [address] 1 [place] [facility] NOTE: Visits indicate total known visits. ED/UCC VISIT TRACKING (12 MO.) 12/27/2021 13:54 [facility] [place] [facility] COMPLAINT: - WEAKNESS 12/22/2021 00:02 [facility] [place] TYPE: Emergency COMPLAINT: - WOUND CARE DIAGNOSES: - Allergy status to sulfonamides - Unspecified open wound, left foot, initial encounter - Exposure to other specified factors, initial encounter - Allergy status to other antibiotic agents - Nicotine dependence, unspecified, uncomplicated - Gastro-esophageal reflux disease without esophagitis - Other intermediate frame tender (current) drug therapy 12/16/2021 23:56 [facility] [place] TYPE: Emergency COMPLAINT: - MEDICAL CLEARANCE DIAGNOSES: - Osteomyelitis, unspecified - Gastro-esophageal reflux disease without esophagitis - Allergy status to sulfonamides - Contact with and (suspected) exposure to COVID-19 - Nicotine dependence, unspecified, uncomplicated - Suicidal ideations - Schizophrenia, unspecified - 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 - Other halfway (current) drug therapy - Allergy status to other drugs, medicaments and biological substances 12/09/2021 16:53 [facility] TYPE: Emergency COMPLAINT: - POSS SEIZURE 12/06/2021 17:20 [facility] TYPE: Emergency COMPLAINT: - ABD PAIN DIAGNOSES: - Allergy status to sulfonamides - Gastro-esophageal reflux disease without esophagitis - Atelectasis - Unspecified convulsions - Osteomyelitis, unspecified - Other halfway (current) drug therapy - Unspecified cirrhosis of [...] Cellulitis of left lower limb - Other halfway (current) drug therapy 11/20/2021 17:42 [facility] TYPE: Emergency COMPLAINT: - WOUND CHECK DIAGNOSES: - Striking against or struck by other objects, initial encounter - Other intermediate frame tender (current) drug therapy - Anxiety disorder, unspecified [...] sulfonamides - Suicidal ideations 10/25/2021 22:22 [facility] [place] TYPE: Emergency DIAGNOSES: - Hypokalemia - SOB; [place] - Hypoxemia - Other specified abnormal findings of blood chemistry - Other acute pancreatitis without necrosis or infection 10/25/2021 10:02 [facility] [place] TYPE: Psychiatric Emergency DIAGNOSES: - Adjustment disorder with depressed mood - [facility] 10/18/2021 10:02 [facility] [place] TYPE: Emergency COMPLAINT: - COVID-19 DIAGNOSES: 1. COVID-19 2. Encounter for other administrative examinations 3. Nicotine dependence, cigarettes, uncomplicated 08/31/2021 17:49 [facility] [place] TYPE: Emergency COMPLAINT: - SEPSIS, ACUTE RESPIRATORY FAILURE WITH HYPOXIA DIAGNOSES: 0. Acute respiratory failure with hypoxia 0. Sepsis, unspecified organism 08/08/2021 18:43 [facility] [place] TYPE: Emergency DIAGNOSES: - HOMELESSNESS UNSPECIFIED - COUGH, UNSPECIFIED 08/01/2021 01:08 [facility] TYPE: Emergency DIAGNOSES: 17545. Acute upper respiratory infection, unspecified 07/31/2021 17:45 [facility] TYPE: Emergency DIAGNOSES: 32250. SOB; Cough; [place]; Chills 07/18/2021 21:58 [facility] TYPE: Emergency DIAGNOSES: 69517. Fall out of WC onto face . [...] - Nicotine dependence, unspecified, uncomplicated - Other intermediate frame tender (current) drug therapy 07/05/2021 19:22 [facility] [place] TYPE: Emergency COMPLAINT: - INTOXICATION DIAGNOSES: - Other intermediate frame tender (current) drug therapy - Blood alcohol level [...] Suicidal ideations - Polyneuropathy, unspecified 10/25/2021 22:22 [facility] [place] TYPE: Medical Surgical DIAGNOSES: - Acute respiratory failure with hypoxia - Hypokalemia - Other acute pancreatitis without necrosis or infection - Local infection of the skin and subcutaneous tissue, unspecified - Other specified abnormal findings of blood chemistry - COVID-19 - Other acute osteomyelitis, left ankle and foot - Hypoxemia 08/31/2021 17:49 [facility] [place] TYPE: Medical Surgical COMPLAINT: - SEPSIS, ACUTE RESPIRATORY FAILURE WITH HYPOXIA DIAGNOSES: 0. Sepsis, unspecified organism 0. Acute respiratory failure with hypoxia 1. Sepsis due to streptococcus, group A 1. Metabolic encephalopathy 2. Acute respiratory failure with hypoxia 3. Acute respiratory failure with hypercapnia 4. Metabolic encephalopathy 5. Acidosis 5. Pneumonia due to coronavirus 2018 6. Unspecified bacterial pneumonia 6. Cellulitis [...] unspecified 36. Encounter for immunization 07/18/2021 21:58 [facility] TYPE: General Medicine DIAGNOSES: . Paresthesia of skin . Alcoholic cirrhosis of liver without ascites . Spinal stenosis, cervical region . Fall from non-moving wheelchair, initial encounter . Alcohol abuse, uncomplicated [email or web address]
[2021-12-27] MEDS ORDERED: PREDNISONE20 MG PO (18:47)
--- NOTE | 2021-12-29 14:23 | EKG ---
[facility] [address] [place], [place] [address] Signed Normal sinus rhythm Minimal voltage criteria for LVH, may be normal variant ( R in aVL ) Borderline ECG When compared with ECG of 09-DEC-2021 20:33, QT has shortened Confirmed by ARCENIO NGUYEN MD ([id number]) on 12/29/2021 2:22:55 PM Electronically Signed By: ARCENIO NGUYEN MD 12/29/21 1423 PATIENT NAME: BRITTANY MANUEL Electrocardiogram DATE OF : 65 PHYSICIAN: ARCENIO NGUYEN MD REPORT #: [id number] REPORT IS CONFIDENTIAL AND NOT TO BE RELEASED WITHOUT AUTHORIZATION
[2022-01-14] MEDS ORDERED: CEPHALEXIN500 M1 PO (13:38)
[2022-03-12] MEDS ORDERED: ZITHROMAX250 MG PO (01:26)
[2022-03-12] MEDS ORDERED: AMOX TR-K CLV1 EAC1 PO (01:26)
== END 2021-12-27 19:25 | disposition home or self-care (01) ==
LOC: ED 13:54
DX: J44.1 Chronic obstructive pulmonary disease with (acute) exacerbation (principal); K21.9 Gastro-esophageal reflux disease without esophagitis; M86.9 Osteomyelitis, unspecified; F17.200 Nicotine dependence, unspecified, uncomplicated; Z88.2 Allergy status to sulfonamides; Z88.1 Allergy status to other antibiotic agents; Z79.899 Other long term (current) drug therapy; Z79.51 Long term (current) use of inhaled steroids; Z20.822 Contact with and (suspected) exposure to COVID-19
CPT/HCPCS: 36415; 71045; 80053; 83605; 85025; 85060; 87040; 93005; 93010; 94640; 96374; 99285-25; C9803; J1100; U0003

== ENCOUNTER 2021-12-28 16:41 | Emergency (ER) | payer MEDICARE, OTHER ==
[~2021-12-28] VITALS: Ht 182.9 cm; Wt 105.7 kg
[~2021-12-28 16:41] MED LIST changes: +PREDNISONE20 MG PO
--- OUTSIDE RECORDS SUMMARY | 2021-12-28 16:44 | XMS ---
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 Care History Medical/Surgical 12/17/2021 [facility] *MINA GOYAL FROM [facility] IS GOING TO GET A CHW INVOLVED WITH PATIENT. THEY ARE CURRENTLY WITH HIM AND MONITORING PATIENT. IF PATIENT NEEDS A SLEEPING BAG AND OR A TENT PLEASE CONTACT SAM IN CASE MANAGEMENT- [phone]. 12/09/2021 [facility] Patient provided with [facility] number for detox. PCP Dr. Warner will no longer be able to treat this patient as he is needing more in person care and is non compliant with provider instructions. Waiting for response from Dr. Lauren to determine if he will take this patient. 12/04/2021 [facility] Patient came into ED after Clinic hours. Patient has a televisit with PCP Dr. Warner today, 12/04/2021 at 3:40 pm. E.D. VISIT COUNT (12 MO.) 1 Joshua Jimenez 2 [facility] [address] [place] [address] [facility] TOTAL 19 NOTE: Visits indicate total known visits. ED/UCC VISIT TRACKING (12 MO.) 12/28/2021 16:42 [facility] [place] Emergency COMPLAINT: - POSS SEIZURE 12/27/2021 13:54 [facility] [place] TYPE: Emergency COMPLAINT: - WEAKNESS 12/22/2021 00:02 [facility] [place] TYPE: Emergency COMPLAINT: - WOUND CARE DIAGNOSES: - Allergy status to sulfonamides - Unspecified open wound, left foot, initial encounter - Exposure to other specified factors, initial encounter - Allergy status to other antibiotic agents - Nicotine dependence, unspecified, uncomplicated - Gastro-esophageal reflux disease without esophagitis - Other diamond selector (current) drug therapy 12/16/2021 23:56 [facility] [place] TYPE: Emergency COMPLAINT: - MEDICAL CLEARANCE DIAGNOSES: - Osteomyelitis, unspecified - Gastro-esophageal reflux disease without esophagitis - Allergy status to sulfonamides - Contact with and (suspected) exposure to COVID-19 - Nicotine dependence, unspecified, uncomplicated - Suicidal ideations - Schizophrenia, unspecified - alf (current) use of inhaled steroids - Other diamond selector (current) drug therapy - Allergy status to other drugs, medicaments and biological substances 12/09/2021 16:53 [facility] [place] TYPE: Emergency COMPLAINT: - POSS SEIZURE 12/06/2021 17:20 [facility] [place] TYPE: Emergency COMPLAINT: - ABD PAIN DIAGNOSES: - Allergy status to sulfonamides - Gastro-esophageal reflux disease without esophagitis - Atelectasis - Unspecified convulsions - Osteomyelitis, unspecified - Other long-term (current) drug therapy - Unspecified cirrhosis of [...] Cellulitis of left lower limb - Other diamond selector (current) drug therapy 11/20/2021 17:42 [facility] [place] TYPE: Emergency COMPLAINT: - WOUND CHECK DIAGNOSES: - Striking against or struck by other objects, initial encounter - Other diamond selector (current) drug therapy - Anxiety disorder, unspecified - Disruption of wound, unspecified, initial encounter - Hypokalemia - Pain in left foot - Nicotine dependence, unspecified, uncomplicated - Schizophrenia, unspecified - Unspecified injury of left foot, initial encounter - Osteomyelitis, unspecified - DEPRESSION, UNSPECIFIED - Depression, unspecified - Gastro-esophageal reflux disease without esophagitis - Allergy status to other antibiotic agents - Allergy status to sulfonamides - Suicidal ideations 10/25/2021 22:22 [facility] [place] TYPE: Emergency DIAGNOSES: - Hypokalemia - SOB; [place] - Hypoxemia - Other specified abnormal findings of blood chemistry - Other acute pancreatitis without necrosis or infection 10/25/2021 10:02 [facility] [place] TYPE: Psychiatric Emergency DIAGNOSES: - Adjustment disorder with depressed mood - [facility] 10/18/2021 10:02 [facility] [place] TYPE: Emergency COMPLAINT: - COVID-19 DIAGNOSES: 1. COVID-19 2. Encounter for other administrative examinations 3. Nicotine dependence, cigarettes, uncomplicated 08/31/2021 17:49 [facility] [place] TYPE: Emergency COMPLAINT: - SEPSIS, ACUTE RESPIRATORY FAILURE WITH HYPOXIA DIAGNOSES: 0. Acute respiratory failure with hypoxia 0. Sepsis, unspecified organism 08/08/2021 18:43 [facility] [place] TYPE: Emergency DIAGNOSES: - HOMELESSNESS UNSPECIFIED - COUGH, UNSPECIFIED 08/01/2021 01:08 [facility] TYPE: Emergency DIAGNOSES: 81385. Acute upper respiratory infection, unspecified 07/31/2021 17:45 [facility] TYPE: Emergency DIAGNOSES: 67686. SOB; Cough; [place]; Chills 07/18/2021 21:58 [facility] TYPE: Emergency DIAGNOSES: 09620. Fall out of WC onto face . Spinal stenosis, cervical region . Fall from non-moving wheelchair, initial encounter . Alcohol abuse, uncomplicated . Paresthesia of skin 07/18/2021 11:30 [facility] [place] TYPE: Emergency COMPLAINT: - NEK PAIN DIAGNOSES: - Allergy status to other antibiotic agents - Other fall from one level to another, initial encounter - Nicotine dependence, unspecified, uncomplicated - Contact with and (suspected) exposure to COVID-19 - Allergy status to sulfonamides - Sprain of ligaments of cervical spine, initial encounter - Gastro-esophageal reflux disease without esophagitis - Other long-term (current) drug therapy - Radiculopathy, cervical region [...] - Nicotine dependence, unspecified, uncomplicated - Other diamond selector (current) drug therapy 07/05/2021 19:22 [facility] [place] TYPE: Emergency COMPLAINT: - INTOXICATION DIAGNOSES: - Other long-term (current) drug therapy - Blood alcohol level [...] PNEUMONIA, AFLUTTER, HYPO K+, SI DIAGNOSES: - Homelessness unspecified - Alcoholic cirrhosis of liver without ascites - Acute and chronic respiratory failure with hypoxia - Polyneuropathy, unspecified - Contact with and (suspected) exposure to COVID-19 - Pneumonia due to Klebsiella pneumoniae - HOMELESSNESS UNSPECIFIED - Schizophrenia, unspecified - Allergy status to other antibiotic agents - Nicotine dependence, cigarettes, uncomplicated - Repeated falls - Other diamond selector (current) drug therapy - HOMELESSNESS UNSPECIFIED - Suicidal ideations - Schizophrenia, unspecified - Epilepsy, unspecified, not intractable, without status epilepticus - Hypokalemia - Anxiety disorder, unspecified - Other fall on same level, initial encounter - Chronic obstructive pulmonary disease with (acute) lower respiratory infection - Vitamin D deficiency, unspecified - Allergy status to sulfonamides - Klebsiella pneumoniae [K. pneumoniae] as the cause of diseases classified elsewhere - Essential (primary) hypertension - Hypokalemia - Chronic obstructive pulmonary disease with (acute) lower respiratory infection - Chronic obstructive pulmonary disease with (acute) exacerbation - Chronic obstructive pulmonary disease with (acute) exacerbation - Vitamin D deficiency, unspecified - Essential (primary) hypertension - Alcoholic cirrhosis of liver without ascites - Gastro-esophageal reflux disease without esophagitis - Repeated falls - Epilepsy, unspecified, not intractable, without status epilepticus - Unspecified open wound, left lower leg, initial encounter - Suicidal ideations - Polyneuropathy, unspecified - Pneumonia due to other Gram-negative bacteria 10/25/2021 22:22 [facility] [place] TYPE: Medical Surgical DIAGNOSES: - Acute respiratory failure with hypoxia - Hypokalemia - Other acute pancreatitis without necrosis or infection - Local infection of the skin and subcutaneous tissue, unspecified - Other specified abnormal findings of blood chemistry - COVID-19 - Other acute osteomyelitis, left ankle and foot - Hypoxemia 08/31/2021 17:49 [facility] [place] TYPE: Medical Surgical COMPLAINT: - SEPSIS, [...] unspecified 36. Encounter for immunization 07/18/2021 21:58 [facility] TYPE: General Medicine DIAGNOSES: . Paresthesia of skin . Alcoholic cirrhosis of liver without ascites . Spinal stenosis, cervical region . Fall from non-moving wheelchair, initial encounter . Alcohol abuse, uncomplicated [email or web address]
--- NOTE | 2021-12-29 14:23 | EKG ---
[facility] [address] [place] [address] Signed Poor data quality, interpretation may be adversely affected Normal sinus rhythm Moderate voltage criteria for LVH, may be normal variant ( R in aVL , Sal product ) Possible Inferior infarct , age undetermined Prolonged QT Abnormal ECG When compared with ECG of 27-DEC-2021 14:29, (Unconfirmed) Borderline criteria for Inferior infarct are now present QT has lengthened Confirmed by ARCENIO NGUYEN MD ([id number]) on 12/29/2021 2:23:37 PM Electronically Signed By: ARCENIO NGUYEN MD 12/29/21 1423 PATIENT NAME: BRITTANY MANUEL Electrocardiogram DATE OF : 65 PHYSICIAN: ARCENIO NGUYEN MD REPORT #: [id number] REPORT IS CONFIDENTIAL AND NOT TO BE RELEASED WITHOUT AUTHORIZATION
== END 2022-01-03 12:50 | disposition home or self-care (01) ==
LOC: ED 16:41
DX: R45.851 Suicidal ideations (principal); G40.909 Epilepsy, unspecified, not intractable, without status epilepticus; Z20.822 Contact with and (suspected) exposure to COVID-19; K21.9 Gastro-esophageal reflux disease without esophagitis; F17.200 Nicotine dependence, unspecified, uncomplicated; Z88.1 Allergy status to other antibiotic agents; Z88.2 Allergy status to sulfonamides; Z79.899 Other long term (current) drug therapy; Z79.52 Long term (current) use of systemic steroids
CPT/HCPCS: 36415; 80053; 81001; 84443; 85025; 85060; 93005; 93010; 94640; 97110; 97116; 97161; 99285-25; A9270; G0480; J7512; U0003

== ENCOUNTER 2022-01-06 20:50 | Emergency (ER) | payer MEDICARE, OTHER ==
[~2022-01-06] VITALS: Ht 182.9 cm; Wt 108.9 kg
--- OUTSIDE RECORDS SUMMARY | 2022-01-06 21:08 | XMS ---
PreManage Notification: BRITTANY MANUEL Security Intermediate Card Tender Events No recent Security Events currently on file CRITERIA MET - [facility] - 2 Visits in [address] [facility] - 3 Facilities in 90 Days - 6 ED Visits in 6 Months - [facility] - Has Care Guidelines CARE PROVIDERS Berta [place] Internal Medicine Current PHONE: Unknown WENDY [facility] Internal Medicine 10/01/2020-Current PHONE: [phone] Tony has no Care Guidelines for this patient. Care History Medical/Surgical 12/17/2021 [facility] *MINA GOYAL FROM [facility] IS GOING TO GET A CHW INVOLVED WITH PATIENT. THEY ARE CURRENTLY WITH HIM AND MONITORING PATIENT. IF PATIENT NEEDS A SLEEPING BAG AND OR A TENT PLEASE CONTACT SAM IN CASE MANAGEMENT- [phone]. 12/09/2021 [facility] Patient provided with [facility] number for detox. PCP Dr. Warner will no longer be able to treat this patient as he is needing more in person care and is non compliant with provider instructions. Waiting for response from Dr. Lauren to determine if he will take this patient. 12/04/2021 [facility] Patient came into ED after Clinic hours. Patient has a televisit with PCP Dr. Warner today, 12/04/2021 at 3:40 pm. E.D. VISIT COUNT (12 MO.) 1 Joshua Tony 2 [facility] [address] 1 [place] [facility] NOTE: Visits indicate total known visits. ED/UCC VISIT TRACKING (12 MO.) 01/06/2022 21:07 [facility] [place] [facility] COMPLAINT: - MEDICAL CLEARANCE 01/04/2022 14:30 [facility] [place] TYPE: Emergency COMPLAINT: - WEAKNESS/COLD SYMPTOMS 12/28/2021 16:42 [facility] [place] TYPE: Emergency COMPLAINT: - SI DIAGNOSES: - Gastro-esophageal reflux disease without esophagitis - Other correction (current) drug therapy - Allergy status to other antibiotic agents - half-way (current) use of systemic steroids - Epilepsy, unspecified, not intractable, without status epilepticus - Allergy status to sulfonamides - Nicotine dependence, unspecified, uncomplicated - Contact with and (suspected) exposure to COVID-19 - Suicidal ideations 12/27/2021 13:54 [facility] [place] TYPE: Emergency COMPLAINT: - WEAKNESS DIAGNOSES: - Allergy status to sulfonamides - Chronic obstructive pulmonary disease with (acute) exacerbation - half-way (current) use of inhaled steroids - Contact with and (suspected) exposure to COVID-19 - Gastro-esophageal reflux disease without esophagitis - Weakness - Osteomyelitis, unspecified - Nicotine dependence, unspecified, uncomplicated - Other correction (current) drug therapy - Allergy status to other antibiotic agents 12/22/2021 00:02 [facility] [place] TYPE: Emergency COMPLAINT: - WOUND CARE DIAGNOSES: - Allergy status to sulfonamides - Unspecified open wound, left foot, initial encounter - Exposure to other specified factors, initial encounter - Allergy status to other antibiotic agents - Nicotine dependence, unspecified, uncomplicated - Gastro-esophageal reflux disease without esophagitis - Other correction (current) drug therapy 12/16/2021 23:56 [facility] [place] TYPE: Emergency COMPLAINT: - MEDICAL CLEARANCE DIAGNOSES: - Osteomyelitis, unspecified - Gastro-esophageal reflux disease without esophagitis - Allergy status to sulfonamides - Contact with and (suspected) exposure to COVID-19 - Nicotine dependence, unspecified, uncomplicated - Suicidal ideations - Schizophrenia, unspecified - buttermaker (current) use of inhaled steroids - Other correction (current) drug therapy - Allergy status to other drugs, medicaments and biological substances 12/09/2021 16:53 [facility] [place] TYPE: Emergency COMPLAINT: - POSS SEIZURE 12/06/2021 17:20 [facility] [place] TYPE: Emergency COMPLAINT: - ABD PAIN DIAGNOSES: - Allergy status to sulfonamides - Gastro-esophageal reflux disease without esophagitis - Atelectasis - Unspecified convulsions - Osteomyelitis, unspecified - Other correction (current) drug therapy - Unspecified cirrhosis of [...] Cellulitis of left lower limb - Other intermediate card tender (current) drug therapy 11/20/2021 17:42 [facility] [place] TYPE: Emergency COMPLAINT: - WOUND CHECK DIAGNOSES: - Striking against or struck by other objects, initial encounter - Other correction (current) drug therapy - Anxiety disorder, unspecified [...] TYPE: Emergency DIAGNOSES: - Hypokalemia - SOB; [place] - Hypoxemia - Other specified abnormal findings of blood chemistry - Other acute pancreatitis without necrosis or infection 10/25/2021 10:02 [facility] [place] TYPE: Psychiatric Emergency DIAGNOSES: - Adjustment disorder with depressed mood - [facility] 10/18/2021 10:02 [facility] [place] TYPE: Emergency COMPLAINT: - COVID-19 DIAGNOSES: 1. COVID-19 2. Encounter for other administrative examinations 3. Nicotine dependence, cigarettes, uncomplicated 08/31/2021 17:49 [facility] [place] TYPE: Emergency COMPLAINT: - SEPSIS, ACUTE RESPIRATORY FAILURE WITH HYPOXIA DIAGNOSES: 0. Acute respiratory failure with hypoxia 0. Sepsis, unspecified organism 08/08/2021 18:43 [facility] TYPE: Emergency DIAGNOSES: - HOMELESSNESS UNSPECIFIED - COUGH, UNSPECIFIED 08/01/2021 01:08 [facility] TYPE: Emergency DIAGNOSES: 39906. Acute upper respiratory infection, unspecified 07/31/2021 17:45 [facility] TYPE: Emergency DIAGNOSES: 43847. SOB; Cough; [place]; Chills 07/18/2021 21:58 [facility] TYPE: Emergency DIAGNOSES: 95197. Fall out of WC onto face . [...] Gastro-esophageal reflux disease without esophagitis - Other correction (current) drug therapy - Radiculopathy, cervical region [...] Nicotine dependence, unspecified, uncomplicated - Other intermediate card tender (current) drug therapy Plus 1 More Visit INPATIENT VISIT TRACKING (12 MO.) 12/10/2021 01:38 [...] cigarettes, uncomplicated - Repeated falls - Other correction (current) drug therapy - HOMELESSNESS UNSPECIFIED - [...] due to other Gram-negative bacteria 10/25/2021 22:22 [facility] [place] TYPE: Medical Surgical DIAGNOSES: - Acute respiratory failure with hypoxia - Hypokalemia - Other acute pancreatitis without necrosis or infection - Local infection of the skin and subcutaneous tissue, unspecified - Other specified abnormal findings of blood chemistry - COVID-19 - Other acute osteomyelitis, left ankle and foot - Hypoxemia 08/31/2021 17:49 [facility] [place] TYPE: Medical Surgical COMPLAINT: - [...] wheelchair, initial encounter . Alcohol abuse, uncomplicated [email or web address]
== END 2022-01-07 13:38 | disposition home or self-care (01) ==
LOC: ED 20:50
DX: R45.851 Suicidal ideations (principal); R44.0 Auditory hallucinations; R44.1 Visual hallucinations; F20.9 Schizophrenia, unspecified; F32.A Depression, unspecified; K21.9 Gastro-esophageal reflux disease without esophagitis; F41.9 Anxiety disorder, unspecified; M86.9 Osteomyelitis, unspecified; F17.200 Nicotine dependence, unspecified, uncomplicated; Z88.2 Allergy status to sulfonamides; Z88.8 Allergy status to other drugs, medicaments and biological substances; Z79.899 Other long term (current) drug therapy; Z79.52 Long term (current) use of systemic steroids; Z79.51 Long term (current) use of inhaled steroids; Z20.822 Contact with and (suspected) exposure to COVID-19
CPT/HCPCS: 36415; 80053; 81001; 84443; 85025; 85060; 99284; A9270; G0480; U0003

== ENCOUNTER 2022-01-18 23:03 | Emergency (ER) | payer MEDICARE, OTHER ==
[~2022-01-18] VITALS: Ht 182.9 cm; Wt 108.9 kg
[~2022-01-18 23:03] MED LIST changes: +CEPHALEXIN500 M1 PO
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
[2022-01-19] MEDS ORDERED: K-TAB ER20 MEQ PO (00:56)
[2022-01-20] MEDS ORDERED: CEPHALEXIN500 MG PO (18:54)
[2022-01-20] MEDS ORDERED: LORATADINE10 MG PO (18:55)
[2022-01-20] MEDS ORDERED: CEPHALEXIN500 M1 PO (20:12)
== END 2022-01-19 01:15 | disposition home or self-care (01) ==
LOC: ED 23:03
DX: Z02.89 Encounter for other administrative examinations (principal); F20.9 Schizophrenia, unspecified; F32.A Depression, unspecified; K21.9 Gastro-esophageal reflux disease without esophagitis; F41.9 Anxiety disorder, unspecified; M86.9 Osteomyelitis, unspecified; J44.9 Chronic obstructive pulmonary disease, unspecified; F17.200 Nicotine dependence, unspecified, uncomplicated; Z88.2 Allergy status to sulfonamides; Z88.1 Allergy status to other antibiotic agents; Z79.899 Other long term (current) drug therapy; Z20.822 Contact with and (suspected) exposure to COVID-19
CPT/HCPCS: 36415; 71045; 80053; 81001; 85025; 87502; 99284-25; A9270; G0480; U0003

== ENCOUNTER 2022-01-20 17:16 | Emergency (ER) | payer MEDICARE, OTHER ==
[~2022-01-20] VITALS: Ht 182.9 cm; Wt 108.9 kg
[~2022-01-20 17:16] MED LIST changes: +K-TAB ER20 MEQ PO
[2022-01-20] MEDS ORDERED: CEPHALEXIN500 MG PO (18:54)
[2022-01-20] MEDS ORDERED: LORATADINE10 MG PO (18:55)
[2022-01-20] MEDS ORDERED: CEPHALEXIN500 M1 PO (20:12)
== END 2022-01-20 20:25 | disposition home or self-care (01) ==
LOC: ED 17:16
DX: M86.672 Other chronic osteomyelitis, left ankle and foot (principal); L03.116 Cellulitis of left lower limb; K21.9 Gastro-esophageal reflux disease without esophagitis; F17.200 Nicotine dependence, unspecified, uncomplicated; Z88.1 Allergy status to other antibiotic agents; Z88.2 Allergy status to sulfonamides; Z79.899 Other long term (current) drug therapy; Z79.51 Long term (current) use of inhaled steroids
CPT/HCPCS: 36415; 73630; 80048; 83605; 85025; 85060; 99284-25; A9270

== ENCOUNTER 2022-03-20 02:32 | Emergency (ER) | payer MEDICARE, OTHER ==
[~2022-03-20] VITALS: Ht 182.9 cm; Wt 112.5 kg
[~2022-03-20 02:32] MED LIST changes: +AMOX TR-K CLV1 EAC1 PO; +LORATADINE10 MG PO; +ZITHROMAX250 MG PO
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
[2022-03-20] MEDS ORDERED: MAPAP500 MG PO (02:44)
== END 2022-03-20 03:10 | disposition home or self-care (01) ==
LOC: ED 02:32
DX: G89.29 Other chronic pain (principal); M54.2 Cervicalgia; K21.9 Gastro-esophageal reflux disease without esophagitis; F17.200 Nicotine dependence, unspecified, uncomplicated; Z88.2 Allergy status to sulfonamides; Z88.1 Allergy status to other antibiotic agents; Z79.899 Other long term (current) drug therapy
CPT/HCPCS: 99283; A9270